=== PATIENT | male | born 1960 | race Caucasian/White ===

== ENCOUNTER → 2020-10-28 | Day surgery (SDC) | payer BC ==
[~2020-10-28] MED LIST: Iopamidol 612 MG/ML 50 ML SDV IVPUSH ONE; Iopamidol 755 Mg/ML 100 ML Bottle IVPUSH ONE; Lactated Ringers 1,000 ML IV SCH; Lidocaine 1% 4 ML ONE; Lidocaine 1%/Sod Bicarbonate in NS 8.4% 1 ML Syringe IDERM PRN; Propofol 200 MG/20 ML SDV ONE; Sodium Chloride 0.9% 10 ML Syringe FLUSH PRN
--- NOTE | 2020-10-28 09:50 | PCM.PREANE ---
Preanesthetic Assessment - Procedure Proposed Procedure: Colonoscopy - Anesthesia/Transfusion/Family Hx Anesthesia History: Prior Anesthesia Without Reaction Family History of Anesthesia Reaction: No Transfusion History: No Prior Transfusion(s) - Review of Systems General: No Symptoms Pulmonary: No Symptoms Cardiovascular: No Symptoms Gastrointestinal: No Symptoms Neurological: No Symptoms Other: Reports: None - Physical Assessment NPO Status Date: 10/27/20 NPO Status Time: 00:00 Height: 1.83 m Weight: 101 kg ASA Class: 2 Mental Status: Alert & Oriented x3 Airway Class: Mallampati = 1 Dentition: Reports: Dennison(s) Thyro-Mental Finger Breadths: 3 Mouth Opening Finger Breadths: 3 ROM/Head Extension: Full Lungs: Clear to Auscultation, Normal Respiratory Effort Cardiovascular: Regular Rate, Regular Rhythm - Allergies Allergies/Adverse Reactions: Allergies Allergy/AdvReac Type Severity Reaction Status Date / Time No Known Allergies Allergy Verified 10/27/20 14:28 - Blood Blood Available: No Product(s) Available: None - Anesthesia Plan Pre-Op Medication Ordered: None - Acknowledgements Anesthesia Type Planned: MAC Pt an Appropriate Candidate for the Planned Anesthesia: Yes Alternatives and Risks of Anesthesia Discussed w Pt/Guardian: Yes Pt/Guardian Understands and Agrees with Anesthesia Plan: Yes PreAnesthesia Questionnaire HEENT History: Reports: Impaired Vision, Other (See Below) Other HEENT History: wears glasses Cardiovascular History: Reports: Other (See Below) Other Cardiovascular History: AV block Respiratory History: Reports: None Gastrointestinal History: Reports: Chronic Constipation, Other (See Below) Other Gastrointestinal History: abdominal pain, blood in stool Genitourinary History: Reports: None 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 Musculoskeletal History: Reports: Osteoarthritis Neurological History: Reports: None Psychiatric History: Reports: None Endocrine/Metabolic History: Reports: Vitamin D Deficiency Hematologic History: Reports: None Immunologic History: Reports: None Oncologic (Cancer) History: Reports: None Dermatologic History: Reports: Other (See Below) Other Dermatologic History: fatty tumor removal - Infectious Disease History Infectious Disease History: Reports: None - Past Surgical History Head Surgeries/Procedures: Reports: None Cardiovascular Surgical History: Reports: None Respiratory Surgical History: Reports: None GI Surgical History: Reports: None Female Surgical History: Reports: None Male Surgical History: Reports: None Endocrine Surgical History: Reports: None Neurological Surgical History: Reports: None Musculoskeletal Surgical History: Reports: None Oncologic Surgical History: Reports: None Dermatological Surgical History: Reports: None - SUBSTANCE USE Tobacco Use Status *Q: Never Tobacco User Tobacco Use Within Last Twelve Months: No Second Hand Smoke Exposure: No Days Per Week of Alcohol Use: 1 Number of Drinks Per Day: 1 Total Drinks Per Week: 1 Recreational Drug Use History: No - HOME MEDS Home Medications: Home Meds . [No Known Home Meds] 10/27/20 [History] - CURRENT (IN HOUSE) MEDS Current Meds: Current Medications Lactated Ringer's (Ringers, Lactated) 1,000 mls @ 125 mls/hr IV ASDIRECTED RICK Stop: 10/28/20 23:00 Lidocaine/Sodium Bicarbonate (Buffered Lidocaine 1% In Ns 8.4%) 0.25 ml IDERM ONETIME PRN PRN Reason: Prior to IV Start Stop: 10/28/20 18:00 Sodium Chloride (Saline Flush) 10 ml FLUSH ASDIRECTED PRN PRN Reason: Keep Vein Open Stop: 10/28/20 18:00
--- NOTE | 2020-10-28 11:16 | PCM48HPAN ---
Post Anesthesia Note - EVALUATION WITHIN 48HRS OF ANESTHETIC Vital Signs in Normal Range: Yes Patient Participated in Evaluation: Yes Respiratory Function Stable: Yes Airway Patent: Yes Cardiovascular Function Stable: Yes Hydration Status Stable: Yes Pain Control Satisfactory: Yes Nausea and Vomiting Control Satisfactory: Yes Mental Status Recovered: Yes Vital Signs: Last Vital Signs Temp 36.0 C L 10/28/20 09:45 Pulse 68 10/28/20 09:45 Resp 16 10/28/20 09:45 BP 133/94 H 10/28/20 09:45 Pulse Ox 96 10/28/20 09:45
--- NOTE | 2020-10-28 11:58 | PCM.PRNOTE ---
- Free Text/Narrative Note: Date: 10/28/2020 Procedure: screening colonoscopy History: no prior screening, sister diagnosed with colon cancer Endoscopist: Jose Handley MD Findings: Large, > 2cm friable fungating polypoid lesion within the sigmoid colon at about 30 cm from the anal verge. 1.5 cm sessile polyp near hepatic flexure, with a nearby subcentimeter polyp in the ascending colon. The two larger lesions were marked with submucosal tattoo ink at their distal aspect. Detailed Report: The patient was taken to the endoscopy suite and placed in left lateral decubitus position. Monitored anesthesia care was initiated, and the anus was inspected. No gross abnormalities were noted. On digital rectal exam, no lesions were palpated, and the prostate felt normal. The colonoscope was then inserted and advanced towards the cecum. On entry, a large polypoid lesion was noted in the sigmoid colon. The scope was advanced with ease to the cecum, and the appendiceal orifice was visualized. Prep was very good. The terminal ileum was intubated, and mucosa appeared grossly normal. The colonoscope was then slowly withdrawn and mucosal surfaces were carefully inspected. Within the ascending colon, a subcentimeter benign-appearing polyp was noted. This was very difficult to biopsy with forceps given that it was on the far side of a mucosal ridge. After multiple unsuccessful attempts of biopsy, this area was thoroughly fulgurated. This lesion was within and only a few centimeters from a larger 1.5 cm sessile polyp near the hepatic flexure. Most of this lesion was removed using hot snare polypectomy technique. Additional pieces of polypoid tissue were removed using the snare, and the base of the tissue was fulgurated. I was not satisfied that the polyp was removed in its entirety, and tattooing was injected submucosally just distal to this lesion. The remainder of the colon appeared normal except for scattered diverticular disease, which was more prevalent in the sigmoid colon. The lesion that was noted on entry was again encountered within the sigmoid colon at about 30 cm from the anal verge. This had a gross appearance worrisome for dysplasia or malignancy. The hot snare was used to remove a substantial national sales representative piece of the lesion, and this was successfully retrieved. The tissue was noted to be friable. This lesion was too large and broad-based to permit safe complete endoscopic excision. Tattooing was injected submucosally just distal to the lesion. No abnormalities were noted within the rectum, on retroflexion no significant hemorrhoidal disease was appreciated. Air was suctioned from the colon prior to withdrawal of the scope. The patient tolerated the procedure well.
--- NOTE | 2020-10-28 12:45 | CT ---
CT chest Technique: Multiple axial sections were obtained through the chest. Intravenous contrast was utilized. Reconstructed coronal and sagittal images were obtained. Comparison: No prior chest imaging is available. Findings: Heart and mediastinum: Aorta shows no aneurysm. No mediastinal or hilar adenopathy is seen. No pericardial thickening is noted. Very minimal coronary artery calcification is seen. Several lymph nodes are seen within the axillary regions which show fatty center and appear within normal limits. Lungs: Lungs appear clear. No pulmonary nodules are appreciated. Several small parenchymal air cysts are seen within the left lung. Osseous: Slight degenerative change is seen within the spine. No acute findings of osseous metastatic disease are seen. Impression: 1. Findings as noted above. 2. Nothing seen to indicate metastatic disease within the chest. Diagnostic code #2 CT abdomen and pelvis Technique: Multiple axial sections were obtained from above the dome of the diaphragm inferiorly through the pubic symphysis. Delayed images were also obtained through these areas. Reconstructed coronal and sagittal images were obtained. Comparison: No prior abdominal or pelvic imaging is available. Findings: Liver and spleen: Liver and spleen shows no focal parenchymal abnormality. Gallbladder: No calcified gallstones are seen. Adrenal glands: No nodule is seen. Kidneys: Kidneys show symmetric contrast enhancement. Very minimal low density lesion noted within the right kidney measuring about 3 mm. This is nonspecific in etiology but most likely due to a small cyst. Small cyst is likely present within the left kidney measuring about 3-4 mm. Delayed images shows contrast within the ureters and within the bladder. Aorta and retroperitoneum. Atherosclerotic calcification is noted within the aorta and iliac vessels. No aneurysm is seen. No retroperitoneal adenopathy is seen. Pelvis: No pelvic mass or adenopathy is seen. Partially visualized low density lesion noted anterior to the lower hip which is incompletely included on this exam measuring about 2.6 cm. This most likely represents an old muscle tear. Bowel: Scattered diverticuli are seen. There is a soft tissue mass being seen within the sigmoid colon measuring approximately 2.4 cm. There is slight increased density seen within the adjacent mesentery around this abnormality. Bone window settings were reviewed. Scattered degenerative change is seen within the lumbar spine. No acute osseous finding is seen. Impression: 1. 2.4 cm mass within the sigmoid colon with minimal amount of adjacent mesenteric density. This finding is suspicious for colon cancer. Please correlate. 2. Other findings believed to be incidental as noted above. 3. Nothing is otherwise seen to indicate metastatic disease. Diagnostic code #9
== END | disposition home or self-care (01) ==
LOC: JD.SDS 09:24
PROVIDERS: ATTEND Surgery
DX: D12.5 Benign neoplasm of sigmoid colon (principal); D12.3 Benign neoplasm of transverse colon; E55.9 Vitamin D deficiency, unspecified; K59.00 Constipation, unspecified
CPT/HCPCS: 00811; 36415; 71260; 71260-26; 74177; 74177-26; 80053; 85007; 85027; 88305; J2001; J2704; J7120; Q9967

== ENCOUNTER 2020-11-05 11:00 | Inpatient (IN) | payer BC ==
[2020-11-23] MEDS ORDERED: Sodium Chloride 0.9% 10 ML Syringe FLUSH PRN (07:00)
[2020-11-23] MEDS ORDERED: Lactated Ringers 1,000 ML IV SCH (07:00)
[2020-11-23] MEDS ORDERED: Lidocaine 2% with EPINEPHrine 1:200,000 20 ML SDV ONE (07:48)
[2020-11-23] MEDS ORDERED: Propofol 200 MG/20 ML SDV ONE ×3 (08:54→15:27)
[2020-11-23] MEDS ORDERED: fentaNYL 250 MCG/5 ML SDV ONE (08:55)
[2020-11-23] MEDS ORDERED: Midazolam 1 MG/ML 2 ML SDV ONE ×2 (08:55→10:54)
[2020-11-23] MEDS ORDERED: Lidocaine 1% 4 ML ONE (08:57)
[2020-11-23] MEDS ORDERED: Rocuronium 50 MG/5 ML Vial ONE (08:59)
[2020-11-23] MEDS ORDERED: Dexamethasone 4 MG/ML 5 ML MDV ONE ×2 (09:01→15:56)
[2020-11-23] MEDS ORDERED: Ondansetron 4 MG/2 ML SDV ONE (09:01)
[2020-11-23] MEDS: Lidocaine 1%/Sod Bicarbonate in NS 8.4% 1 ML Syringe IDERM PRN ×2 (09:25→09:35)
[2020-11-23] MEDS ORDERED: cefOXitin 2 GM in Premix Bag 1 BAG IV ONE (09:30)
[2020-11-23] MEDS ORDERED: FLU VACC QS2020-21(6MOS UP)/PF 60 MCG/0.5 ML SYRINGE IM ONE (10:00)
--- NOTE | 2020-11-23 10:16 | PCM.PREANE ---
Preanesthetic Assessment - Procedure Proposed Procedure: diagnositc laparascopy with partial colectomy open - Anesthesia/Transfusion/Family Hx Anesthesia History: Prior Anesthesia Without Reaction Family History of Anesthesia Reaction: No Transfusion History: No Prior Transfusion(s) Intubation History: Unknown - Review of Systems General: No Symptoms Pulmonary: No Symptoms Cardiovascular: No Symptoms Gastrointestinal: No Symptoms Neurological: No Symptoms Other: Reports: None - Physical Assessment NPO Status Date: 11/22/20 Vital Signs: Last Vital Signs Temp 36.6 C 11/23/20 09:00 Pulse 73 11/23/20 09:00 Resp 17 11/23/20 09:00 BP 150/95 H 11/23/20 09:00 Pulse Ox 96 11/23/20 09:00 Height: 1.83 m Weight: 94.6 kg ASA Class: 3 Mental Status: Alert & Oriented x3 Airway Class: Mallampati = 2 () Dentition: Reports: Normal Dentition Thyro-Mental Finger Breadths: 3 Mouth Opening Finger Breadths: 4 - Allergies Allergies/Adverse Reactions: Allergies Allergy/AdvReac Type Severity Reaction Status Date / Time No Known Allergies Allergy Verified 11/23/20 09:56 - Blood Blood Available: No - Anesthesia Plan Pre-Op Medication Ordered: None, Other (scopalamine patch ) - Acknowledgements Anesthesia Type Planned: General Anesthesia Pt an Appropriate Candidate for the Planned Anesthesia: Yes Alternatives and Risks of Anesthesia Discussed w Pt/Guardian: Yes Pt/Guardian Understands and Agrees with Anesthesia Plan: Yes PreAnesthesia Questionnaire HEENT History: Reports: Impaired Vision, Other (See Below) Other HEENT History: wears glasses Cardiovascular History: Reports: Other (See Below) Other Cardiovascular History: AV block Respiratory History: Reports: None Gastrointestinal History: Reports: Chronic Constipation, Other (See Below) Other Gastrointestinal History: abdominal pain, blood in stool Genitourinary History: Reports: None 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 Musculoskeletal History: Reports: Osteoarthritis Neurological History: Reports: None Psychiatric History: Reports: None Endocrine/Metabolic History: Reports: Vitamin D Deficiency Hematologic History: Reports: None Immunologic History: Reports: None Oncologic (Cancer) History: Reports: None Dermatologic History: Reports: Other (See Below) Other Dermatologic History: fatty tumor removal - Infectious Disease History Infectious Disease History: Reports: None - Past Surgical History Head Surgeries/Procedures: Reports: None Cardiovascular Surgical History: Reports: None Respiratory Surgical History: Reports: None GI Surgical History: Reports: None Female Surgical History: Reports: None Male Surgical History: Reports: None Endocrine Surgical History: Reports: None Neurological Surgical History: Reports: None Musculoskeletal Surgical History: Reports: None Oncologic Surgical History: Reports: None Dermatological Surgical History: Reports: None - SUBSTANCE USE Tobacco Use Status *Q: Never Tobacco User Second Hand Smoke Exposure: No Recreational Drug Use History: No - HOME MEDS Home Medications: Home Meds . [No Known Home Meds] 10/27/20 [History] - CURRENT (IN HOUSE) MEDS Current Meds: Current Medications Lactated Ringer's (Ringers, Lactated) 1,000 mls @ 125 mls/hr IV ASDIRECTED RICK Stop: 11/23/20 23:00 Last Admin: 11/23/20 09:25 Dose: 125 mls/hr Documented by: Lidocaine/Sodium Bicarbonate (Buffered Lidocaine 1% In Ns 8.4%) 0.25 ml IDERM ONETIME PRN PRN Reason: Prior to IV Start Stop: 11/23/20 18:00 Last Admin: 11/23/20 09:35 Dose: 0.25 ml Documented by: Sodium Chloride (Saline Flush) 10 ml FLUSH ASDIRECTED PRN PRN Reason: Keep Vein Open Stop: 11/23/20 18:00 Last Admin: 11/23/20 09:35 Dose: 10 ml Documented by: Discontinued Medications Dexamethasone (Dexamethasone) Confirm Administered Dose 20 mg .ROUTE .STK-MED ONE Stop: 11/23/20 09:02 Fentanyl (Sublimaze) Confirm Administered Dose 250 mcg .ROUTE .STK-MED ONE Stop: 11/23/20 08:56 Lidocaine HCl (Xylocaine-Mpf 1%) Confirm Administered Dose 4 mls @ as directed .ROUTE .STK-MED ONE Stop: 11/23/20 08:58 Cefoxitin Sodium 2 gm/ Premix 50 mls @ 100 mls/hr IV ONETIME ONE Stop: 11/23/20 09:59 Last Admin: 11/23/20 09:57 Dose: 100 mls/hr Documented by: Influenza Virus Vaccine (Fluzone Quad [id number] Syringe) 60 mcg IM .ONCE ONE Stop: 11/23/20 10:01 Lidocaine/Epinephrine (Xylocaine-Mpf 2%-Epi 1:200,000) Confirm Administered Dose 20 ml .ROUTE .STK-MED ONE Stop: 11/23/20 07:49 Midazolam HCl (Versed 1 Mg/Ml) Confirm Administered Dose 2 mg .ROUTE .STK-MED ONE Stop: 11/23/20 08:56 Ondansetron HCl (Zofran) Confirm Administered Dose 4 mg .ROUTE .STK-MED ONE Stop: 11/23/20 09:02 Propofol (Diprivan 20 Ml) Confirm Administered Dose 400 mg .ROUTE .STK-MED ONE Stop: 11/23/20 08:55 Propofol (Diprivan 20 Ml) Confirm Administered Dose 200 mg .ROUTE .STK-MED ONE Stop: 11/23/20 08:57 Rocuronium [place] (Zemuron) Confirm Administered Dose 50 mg .ROUTE .STK-MED ONE Stop: 11/23/20 09:00
[2020-11-23] MEDS ORDERED: Ondansetron 4 MG/2 ML SDV IVPUSH PRN (10:23)
[2020-11-23] MEDS ORDERED: diphenhydrAMINE 50 MG/ML SDV IVPUSH PRN (10:23)
[2020-11-23] MEDS ORDERED: Lidocaine 1% with EPINEPHrine 1:100,000 20 ML MDV ONE (10:29)
[2020-11-23] MEDS ORDERED: Scopolamine 1.5 MG Transdermal Patch TRDERM ONE (11:00)
--- NOTE | 2020-11-23 14:43 | PCM.SN.2 ---
- Free Text/Narrative Note: 11/23/[address] Handley for pain control. Time Out: 1116 Start: 1125 Test Dose: 1129 Stop: 1130 Midazolam 2 mg IVP given at 1120. Full monitors applied. See nursing notes fro vital signs. Tanmay Oswald agrees to proceed with epidural placement. Risks and benefits of the procedure reviewed and questions answered. Sterile Prep and Drape applied, betadine x 3, with time allowed to dry, gauze to wipe betadine prior to skin puncture, 17 gauge Tuohy needle advanced to VIOLA at 5 cm, catheter inserted with ease, needle removed, catheter placed at 12 cm at the skin, negaive heme aspiration, no fluid noted in needle or catheter, denied paresthesia, test dose administered 1.5 % lidocaine with epinephrine 1:200,000 3 ml, negative test dose, catheter secured and covered with a transparent dressing and tape to secure to the shoulder. Tanmay was repositioned supine with HOB elevated. Tanmay tolerated the procedure well with no complications noted. Lidocaine 2% with epinephrine 1:200,000 administered to a volume of 5 ml. Epidural setting up appropriately. Warmth and tingling noted to both feet. Sarah Jensen CRNA
[2020-11-23] MEDS ORDERED: Morphine PF 10 MG/10 ML SDV ONE (15:16)
[2020-11-23] MEDS ORDERED: ePHEDrine 50 MG/ML SDV IVPUSH PRN (16:19)
[2020-11-23] MEDS ORDERED: fentaNYL 100 MCG/2 ML SDV IVPUSH PRN (16:20)
[2020-11-23] MEDS ORDERED: Lactated Ringers 1,000 ML ONE ×2 (16:42)
[2020-11-23] MEDS ORDERED: Morphine 2 MG/ML SYRINGE IVPUSH PRN (16:44)
[2020-11-23] MEDS ORDERED: Acetaminophen 325 MG Tab PO SCH (16:45)
[2020-11-23] MEDS ORDERED: Heparin Sodium 5,000 Units/ML Vial SUBCUT SCH (16:45)
--- NOTE | 2020-11-23 16:55 | PCM.POSTAN ---
POST ANESTHESIA ASSESSMENT - MENTAL STATUS Mental Status: Other (Drowsy) - VITAL SIGNS Vital Signs: Last Vital Signs Temp 36.6 C 11/23/20 09:00 Pulse 73 11/23/20 09:00 Resp 17 11/23/20 09:00 BP 150/95 H 11/23/20 09:00 Pulse Ox 96 11/23/20 09:00 - RESPIRATORY Respiratory Status: Respiratory Rate WNL, Airway Patent, O2 Saturation Stable, Supplemental Oxygen - CARDIOVASCULAR CV Status: Blood Pressure Stable, Slow Pulse Rate - GASTROINTESTINAL GI Status: No Symptoms - PAIN Pain Score: 0 - POST OP HYDRATION Hydration Status: Adequate & Stable
--- NOTE | 2020-11-23 17:03 | PCM.PRNOTE ---
- Free Text/Narrative Note: Date: 11/23/2020 Operation: diagnostic laparoscopy, laparotomy with sigmoid colectomy, segmental proximal transverse colectomy Indication: endoscopically unresectable polyps Surgeon: Jose Handley MD Findings: tattoo sites noted to indicate site of lesions. 5 cm segment of proximal transverse colon resected with end to end handsewn anastomosis. 25 cm segment of sigmoid colon resected with stapled end-to-end colorectal anastomosis. ARABELLA drain left in pelvis. I/O: 2.8L/0.55L EBL: 200 cc Antibiotic: cefoxitin dosed before and during case Detailed Report: The patient was taken to the operating room and placed in supine position. Timeout was performed, and general endotracheal anesthesia initiated. A Booker catheter was placed. The abdominal hair was clipped, and the patient was then positioned in low lithotomy. The abdomen was prepped and draped in usual sterile fashion. A Veress needle was placed at the left upper quadrant to establish pneumoperitoneum. A bladed 5 mm trocar was placed just superior to the umbilicus, and a 5 mm 30 degree laparoscope was inserted in the abdomen. On inspection, there was tattoo ink visible on the serosa of the proximal transverse colon near the hepatic flexure. Additional tattoo marking was seen at the mid sigmoid. A midline laparotomy was then made, and attention was turned to the sigmoid colon. The Bookwalter was placed to aid with proper retraction and exposure. Lateral attachments of the descending and sigmoid colon were divided, and the colon was reflected medially off of the retroperitoneum. A contour blue load stapler was used to divide the colon approximately 5 cm proximal and distal to the marked site. The colonic mesentery was then divided using the LigaSure. The specimen was passed off, and the 2 stapled ends of bowel came together without tension. Marking stitches were placed at the 2 staple lines, and attention was then turned to the proximal lesion of the transverse colon. Omentum was taken off the proximal portion of the transverse colon, and there appeared to be enough mobility to allow for short resection without extensive dissection. The contour stapler was again used to remove the marked section of colon, a segment measuring approximately 5 cm in length. Specimen was sent off separately. Colotomies were made that permitted passage of the index finger, and the colon was sewn together with interrupted 3-0 Vicryl suture. This anastomosis appeared to have good blood supply and came together without tension. Next, attention was turned to the distal anastomosis. The patient was properly positioned with the ends of the sigmoid colon and superior portion of the rectum exposed. The staple line of the sigmoid colon was removed, and a pursestring Monocryl suture was placed in order to secure the anvil for the circular stapler. The railways assistant passed anal dilators up to the distal staple line. The 25 mm circular stapler was then passed up to the distal staple line, and the anvil and stapler were coupled. The stapler was closed without tension. The stapler was fired by the railways assistant, and the stapler was removed without any difficulty. A leak test was performed with a sigmoidoscope, which was negative. On the back table, the circular stapler was opened and 2 intact circular rings of tissue were retrieved. The abdomen was thoroughly irrigated and suctioned. A 10 Irish ARABELLA drain was placed in the pelvis and brought out to the right lower quadrant. This was secured at the level of the skin with a nylon suture. The abdomen was closed at the level of fascia with running 0 PDS suture. The skin and subcutaneous tissue was again irrigated, and skin was closed with fabienne. The patient tolerated the procedure well, was extubated in the operating room and transferred to the ICU for postoperative care. .
[2020-11-23] MEDS: diphenhydrAMINE 50 MG/ML SDV IVPUSH PRN (20:35)
[2020-11-23] MEDS: Acetaminophen 325 MG Tab PO SCH (20:39)
[2020-11-23] MEDS: Heparin Sodium 5,000 Units/ML Vial SUBCUT SCH (20:39)
[2020-11-23] MEDS: Lactated Ringers 1,000 ML IV SCH (21:22)
[2020-11-24] MEDS: diphenhydrAMINE 50 MG/ML SDV IVPUSH PRN ×2 (02:36→08:56)
[2020-11-24] MEDS: Acetaminophen 325 MG Tab PO SCH ×3 (03:39→21:24)
[2020-11-24] MEDS: Heparin Sodium 5,000 Units/ML Vial SUBCUT SCH ×3 (03:41→21:22)
[2020-11-24] MEDS: Lactated Ringers 1,000 ML IV SCH ×4 (04:10→22:51)
--- NOTE | 2020-11-24 07:20 | PCM48HPAN ---
Post Anesthesia Note - EVALUATION WITHIN 48HRS OF ANESTHETIC Vital Signs in Normal Range: Yes Patient Participated in Evaluation: Yes Respiratory Function Stable: Yes Airway Patent: Yes Cardiovascular Function Stable: Yes Hydration Status Stable: Yes Pain Control Satisfactory: Yes (minimal pain- sit up soreness is all) Nausea and Vomiting Control Satisfactory: Yes Mental Status Recovered: Yes Vital Signs: Last Vital Signs Temp 99.6 F 11/24/20 03:29 Pulse 73 11/24/20 03:29 Resp 19 11/24/20 03:29 BP 105/66 11/24/20 03:29 Pulse Ox 96 11/24/20 03:29 - COMMENTS/OBSERVATIONS Free Text/Narrative:: doing well. Minimal pain- 1- Will assess later today and rebolus epidural with astromorph. Patient pleased with care. David
--- NOTE | 2020-11-24 08:18 | PCM.SN.2 ---
- Free Text/Narrative Note: Partial transverse colectomy and sigmoid colectomy for endoscopically unresectable polyps on 11/24/2020. POD 1 S: no acute events overnight. Pain well controlled. Tolerating sips. O: AF- VSS, UOP ~ 40 cc/hr Labs reviewed, unremarkable for POD 1 Awake and alert, no distress Breathing comfortably, nasal cannula in place RRR Abd appropriately tender. Dressing appears somewhat bloody. ARABELLA drain with small volume sanguinous output Aquino catheter in place with clear yellow urine No edema A: Doing well POD 1, no issues. P: -epidural in place for analgesia, morphine prn -IS, OOB, pulmonary toilet -advance to clear liquids -reassess urine output this afternoon, possible aquino catheter removal and trial of void -no antibiotics indicated -no plan to repeat labs unless clinically indicated -heparin 5000 u SC, SCDs for DVT ppx -await return of bowel function -anticipate at least 4 night stay in house
[2020-11-24] MEDS ORDERED: Morphine PF 10 MG/10 ML SDV ONE (13:33)
[2020-11-24] MEDS ORDERED: diphenhydrAMINE 50 MG/ML SDV IVPUSH PRN (13:54)
--- NOTE | 2020-11-24 13:54 | PCM.SN.2 ---
- Free Text/Narrative Note: 11/24/20 [id number] Epidural assessed. Patient was just up walking. Minimal pain. Bolus of Duramorph 5 mg via epidural for post op pain relief after bowel resection. Vitals stable. Patient pleased with care. Denies nausea. Nurse in room also. Pulse oximeter remains on. [email or web address]
[2020-11-25] MEDS: Acetaminophen 325 MG Tab PO SCH (04:53)
[2020-11-25] MEDS: Heparin Sodium 5,000 Units/ML Vial SUBCUT SCH ×3 (04:53→19:58)
[2020-11-25] MEDS: Ondansetron 4 MG/2 ML SDV IVPUSH PRN ×2 (04:54→14:16)
[2020-11-25] MEDS ORDERED: Sodium Chloride 0.45% 1,000 ML IV SCH (07:45)
--- NOTE | 2020-11-25 07:55 | PCM.SN.2 ---
- Free Text/Narrative Note: Epidural assessment. Epidural utilized for post op pain management. Post op day [address] Handley wishes to continue to manage pain with epidural at this time. Tanmay states he was up multiple times last evening. Pain is worse with movement. Denies pain at rest. Nausea episode this morning that was relieved with ondansetron. Currently does not feel nauseated. Epidural Duramorph administered 2 mg at 0810.
[2020-11-25] MEDS ORDERED: Morphine PF 10 MG/10 ML SDV ONE (08:05)
[2020-11-25] MEDS: Pantoprazole 40 MG Tab.CR PO SCH (08:06)
[2020-11-25] MEDS ORDERED: Pantoprazole 40 MG in Sodium Chloride 0.9% 100 ML IV SCH (09:00)
--- NOTE | 2020-11-25 09:19 | PCM.SN.2 ---
- Free Text/Narrative Note: Partial transverse colectomy and sigmoid colectomy for endoscopically unresectable polyps on 11/24/2020. POD 2 S: no acute events overnight. Pain well controlled. Tolerating clear liquids, voiding after aquino removal. Belching. No flatus. O: AF- VSS Awake and alert, no distress Breathing comfortably, now on room air RRR Abd appropriately tender. Incision clean, minimal serosanguinous drainage. ARABELLA drain with serosanguinous output. No edema A: Doing well POD 2 P: -epidural in place for analgesia, morphine prn. Plan for epidural removal tomorrow. -IS, OOB, pulmonary toilet -switch IV fluids to 1/2 NS @ 50 cc/hr -stick with clear liquids. Add oral PPI -heparin 5000 u SC, SCDs for DVT ppx -await return of bowel function -anticipate at least 4 night stay in house
[2020-11-25] MEDS ORDERED: Ondansetron 4 MG/2 ML SDV ONE (13:57)
[2020-11-25] MEDS ORDERED: Dexmedetomidine 200 MCG/2 ML SDV IT PRN (16:00)
[2020-11-25] MEDS ORDERED: Dexmedetomidine 200 MCG/2 ML SDV ONE (16:09)
[2020-11-25] MEDS ORDERED: Ondansetron 4 MG/2 ML SDV IVPUSH PRN (17:53)
[2020-11-26] MEDS: Heparin Sodium 5,000 Units/ML Vial SUBCUT SCH ×4 (04:16→20:16)
[2020-11-26] MEDS: Pantoprazole 40 MG Tab.CR PO SCH (08:13)
--- NOTE | 2020-11-26 08:19 | PCM.PRNOTE ---
- Free Text/Narrative Note: Partial transverse colectomy and sigmoid colectomy for endoscopically unresectable polyps on 11/23/2020. POD 3 S: no acute events overnight. Reports abdominal pain when shifting around in bed. Tolerating clear liquids, voiding after aquino removal. Belching. Reports flatus x1 last evening. Had an episode of chills when out of bed to bathroom yesterday evening. O: AF- VSS Awake and alert, no distress Breathing comfortably on room air, sitting in recliner RRR, palpable radial pulses Abd incision intact without significant drainage. ARABELLA drain with odorless serosanguinous output. Distended, tender, more on left side, no rigidity or rebound. Skin warm, dry, No edema A: Stable on POD 3- seems to have ileus with distention and discomfort. Discussed possible placement of NG tube for decompression today. P: -plan for epidural removal today. Dilaudid, tylenol prn pain -IS, OOB, pulmonary toilet -medlocked -stick with clear liquids. PPI. Possible NG tube placement for ileus. -heparin 5000 u SC, SCDs for DVT ppx -await return of bowel function -repeat labs in AM including CRP -anticipate at least 4 night stay in house
[2020-11-26] MEDS ORDERED: D5 1/2 NS w/ 20 mEq/L KCl 1,000 ML IV SCH (08:30)
[2020-11-26] MEDS: Acetaminophen 325 MG Tab PO PRN (11:20)
[2020-11-26] MEDS ORDERED: HYDROmorphone 0.5 MG/0.5 ML Syringe IVPUSH PRN (11:45)
[2020-11-26] MEDS ORDERED: Morphine PF 10 MG/10 ML SDV ONE (12:26)
[2020-11-26] MEDS ORDERED: Lactated Ringers 500 ML IV ONE ×2 (12:38→19:15)
--- NOTE | 2020-11-26 13:06 | PCM.SN.2 ---
- Free Text/Narrative Note: Assessment and re-evaluation of the patient with indwelling epidural catheter. Patient is on her postoperative day 3. Vital signs stable. Over last night the patient has experienced increase in pain, which was treated once with Morphine IV. Per discussion with Dr. Syed Handley, a decision was made to keep the epidural catheter and to continue with intermittent boluses for pain coverage. Duramorph epidural PRN orders were resumed. Lumbar epidural site dressing was found loose. In order to assess the patency of the epidural catheter a one-time test dose of 1.5% PF Lidocaine with 1:200k of epinephrine, total of 5 ml was given when the patient in bed in right decubitus position. The patient reported some numbness and tingling in lower extremities and subsequent relief of abdominal pain. Moderate decrease in BP was also noted. Epidural catheter dressing was removed and the catheter depth at the skin was noted to be 12 cm. The dressing changed in a sterile fashion, after skin cleaning with Chloraprep, allowing to dry and securing the catheter with 2x2 sterile gauze and 2 layers of Tegaderm adhesive dressing. A PRN IVF LR bolus was also ordered due to patient's transient hypotension. Patient is comfortable right now and prefers to stay in bed and to have some rest. . Plan is not to remove epidural catheter at this time. At 13:30 5 mg of Duramorph was given via the epidural catheter. We will reevaluate the patient within the next 24 hours.
[2020-11-26] MEDS: Morphine PF 10 MG/10 ML SDV EPIDUR PRN (13:29)
[2020-11-27] MEDS: D5 1/2 NS w/ 20 mEq/L KCl 1,000 ML IV SCH ×2 (01:49→13:33)
[2020-11-27] MEDS: Heparin Sodium 5,000 Units/ML Vial SUBCUT SCH ×3 (03:02→19:40)
--- NOTE | 2020-11-27 07:06 | PCM.CONS ---
H&P History of Present Illness - General Date of Service: 11/27/20 Admit Problem/Dx: Admission Diagnosis/Problem Admission Diagnosis/Problem Colon polyp Source of Information: Patient History Limitations: Reports: No Limitations - History of Present Illness Initial Comments - Free Text/Narative: Internal medicine consult requested by surgery for new onset atrial fibrillatio n. The patient is a 60-year-old gentleman who is currently in postop day 4 of partial colectomy. This was done secondary to polyps and inability to defecate. The patient says that he has never had history of atrial fibrillation. The patient had converted to normal sinus rhythm at approximately 9 PM last night. The patient is currently anticoagulated with heparin at 5000 units subcutaneous every 8 hours. The patient has an NG tube in place. The patient himself says that he feels pretty good today. He has been previously ambulating. He has no other complaints at this time. Onset of Symptoms: Reports: Sudden Duration of Symptoms: Reports: Hour(s):, Resolved Prior to Arrival Improves with: Reports: None Worsens with: Reports: None Context: Reports: Trauma (Partial colectomy) Associated Symptoms: Reports: No Other Symptoms Abdominal Pain Pain Score (Numeric/FACES): 3 - Related Data Allergies/Adverse Reactions: Allergies Allergy/AdvReac Type Severity Reaction Status Date / Time No Known Allergies Allergy Verified 11/23/20 22:03 Home Medications: Home Meds Cholecalciferol (Vitamin D3) [Vitamin D] 1 tab PO DAILY 11/23/20 [History] L.acidoph,Paracasei, B.lactis [Probiotic] 1 tab PO DAILY 11/23/20 [History] Multivitamin 1 tab PO DAILY 11/23/20 [History] Past Medical History HEENT History: Reports: Impaired Vision, Other (See Below) Other HEENT History: wears glasses Cardiovascular History: Reports: None Other Cardiovascular History: AV block Respiratory History: Reports: None Gastrointestinal History: Reports: Chronic Constipation, Other (See Below) Other Gastrointestinal History: abdominal pain, blood in stool Genitourinary History: Reports: None CARD STRIPPER History: Reports: None Musculoskeletal History: Reports: None Neurological History: Reports: None Psychiatric History: Reports: None Endocrine/Metabolic History: Reports: None Hematologic History: Reports: None Immunologic History: Reports: None Oncologic (Cancer) History: Reports: None Dermatologic History: Reports: Other (See Below) Other Dermatologic History: fatty tumor removal - Infectious Disease History Infectious Disease History: Reports: None - Past Surgical History Head Surgeries/Procedures: Reports: None Cardiovascular Surgical History: Reports: None Respiratory Surgical History: Reports: None GI Surgical History: Reports: None, Colonoscopy Other GI Surgeries/Procedures: 10/2020 Male Surgical History: Reports: None Endocrine Surgical History: Reports: None Neurological Surgical History: Reports: None Musculoskeletal Surgical History: Reports: None Oncologic Surgical History: Reports: None Dermatological Surgical History: Reports: None Social & Family History - Tobacco Use Tobacco Use Status *Q: Never Tobacco User Second Hand Smoke Exposure: No - Caffeine Use Caffeine Use: Reports: Tea - Recreational Drug Use Recreational Drug Use: No H&P Review of Systems - Review of Systems: Review Of Systems: See Below General: Reports: Weakness HEENT: Reports: No Symptoms Pulmonary: Reports: No Symptoms Cardiovascular: Reports: No Symptoms Gastrointestinal: Reports: Abdominal Pain. Denies: Flatus Genitourinary: Reports: No Symptoms Musculoskeletal: Reports: No Symptoms Skin: Reports: No Symptoms Psychiatric: Reports: No Symptoms Neurological: Reports: No Symptoms Hematologic/Lymphatic: Reports: No Symptoms Immunologic: Reports: No Symptoms Exam - Exam Exam: See Below - Vital Signs Vital Signs: Last Vital Signs Temp 36.6 C 11/27/20 03:09 Pulse 70 11/27/20 03:09 Resp 14 11/27/20 05:00 BP 112/73 11/27/20 03:09 Pulse Ox 97 11/27/20 05:00 Weight: 98.702 kg - Exam Quality Assessment: DVT Prophylaxis, Other (G-tube in place). No: Supplemental Oxygen General: Alert, Oriented, Cooperative HEENT: Conjunctiva Clear, EACs Clear, EOMI, Mucosa Moist & [place], Pupils Equal, PERRLA Neck: Supple, Trachea Midline Lungs: Clear to Auscultation, Normal Respiratory Effort Cardiovascular: Regular Rate, Regular Rhythm GI/Abdominal Exam: Soft, No Distention. No: Normal Bowel Sounds (Hypoactive), Guarding, Rigid, Rebound (Male) Exam: Deferred Rectal (Males) Exam: Deferred Back Exam: Normal Inspection, Full Range of Motion Extremities: Normal Inspection, No Pedal Edema Skin: Warm, Intact, Moist Neurological: Cranial Nerves Intact, Normal Gait, Normal Speech Neuro Extensive - Mental Status: Alert, Oriented x3, Memory Intact Neuro Extensive - Motor, Sensory, Reflexes: CN II-XII Intact Psychiatric: Alert, Normal Affect, Normal Mood - Patient Data Lab Results Last 24 hrs: Laboratory Results - last 24 hr 11/26/20 11/27/20 11/27/20 Range/Units 16:15 04:19 04:19 WBC 11.03 H 10.32 H (4.23-9.07) K/mm3 RBC 4.12 L 3.84 L (4.63-6.08) M/mm3 Hgb 12.2 L 11.3 L (13.7-17.5) gm/dl Hct 36.7 L 34.8 L (40.1-51.0) % MCV 89.1 90.6 (79.0-92.2) fl MCH 29.6 29.4 (25.7-32.2) pg MCHC 33.2 32.5 (32.2-35.5) g/dl RDW Std Deviation 41.7 42.9 (35.1-43.9) fL Plt Count 220 223 (163-337) K/mm3 MPV 8.9 L 9.6 (9.4-12.3) fl Neut % (Auto) 77.6 H 72.6 H (34.0-67.9) % Lymph % (Auto) 11.6 L 9.9 L (21.8-53.1) % Loup % (Auto) 8.2 10.1 (5.3-12.2) % Eos % (Auto) 2.2 7.1 H (0.8-7.0) Baso % (Auto) 0.2 0.2 (0.1-1.2) % Neut # (Auto) 8.57 H 7.50 H (1.78-5.38) K/mm3 Lymph # (Auto) 1.28 L 1.02 L (1.32-3.57) K/mm3 Loup # (Auto) 0.90 H 1.04 H (0.30-0.82) K/mm3 Eos # (Auto) 0.24 0.73 H (0.04-0.54) K/mm3 Baso # (Auto) 0.02 0.02 (0.01-0.08) K/mm3 Manual Slide Review Normal smear Normal smear Sodium (136-145) mEq/L Potassium (3.5-5.1) mEq/L Chloride (98-107) mEq/L Carbon Dioxide (21-32) mEq/L Anion Gap (5-15) BUN (7-18) mg/dL Creatinine (0.7-1.3) mg/dL Est Cr Clr Drug Dosing mL/min Estimated GFR (MDRD) (>60) mL/min BUN/Creatinine Ratio (14-18) Glucose (74-106) mg/dL Calcium (8.5-10.1) mg/dL Phosphorus 3.4 (2.6-4.7) mg/dL Magnesium 1.9 (1.8-2.4) mg/dl C-Reactive Protein 35.6 H* (<1.0) mg/dL 11/27/20 Range/Units 04:19 WBC (4.23-9.07) K/mm3 RBC (4.63-6.08) M/mm3 Hgb (13.7-17.5) gm/dl Hct (40.1-51.0) % MCV (79.0-92.2) fl MCH (25.7-32.2) pg MCHC (32.2-35.5) g/dl RDW Std Deviation (35.1-43.9) fL Plt Count (163-337) K/mm3 MPV (9.4-12.3) fl Neut % (Auto) (34.0-67.9) % Lymph % (Auto) (21.8-53.1) % Loup % (Auto) (5.3-12.2) % Eos % (Auto) (0.8-7.0) Baso % (Auto) (0.1-1.2) % Neut # (Auto) (1.78-5.38) K/mm3 Lymph # (Auto) (1.32-3.57) K/mm3 Loup # (Auto) (0.30-0.82) K/mm3 Eos # (Auto) (0.04-0.54) K/mm3 Baso # (Auto) (0.01-0.08) K/mm3 Manual Slide Review Sodium 140 (136-145) mEq/L Potassium 3.8 (3.5-5.1) mEq/L Chloride 105 (98-107) mEq/L Carbon Dioxide 29 (21-32) mEq/L Anion Gap 9.8 (5-15) BUN 15 (7-18) mg/dL Creatinine 1.3 (0.7-1.3) mg/dL Est Cr Clr Drug Dosing 66.32 mL/min Estimated GFR (MDRD) 56 (>60) mL/min BUN/Creatinine Ratio 11.5 L (14-18) Glucose 127 H (74-106) mg/dL Calcium 8.1 L (8.5-10.1) mg/dL Phosphorus (2.6-4.7) mg/dL Magnesium (1.8-2.4) mg/dl C-Reactive Protein (<1.0) mg/dL Result Diagrams: 11/27/20 04:19 11/27/20 04:19 Sepsis Event Note - Evaluation Sepsis Screening Result: No Definite Risk - Focused Exam Vital Signs: Vital Signs Temp Pulse Resp BP BP Pulse Ox 11/27/20 05:00 14 97 11/27/20 04:30 17 95 11/27/20 04:00 13 92 L 11/27/20 03:30 16 93 L 11/27/20 03:09 36.6 C 70 18 112/73 94 L 11/27/20 03:01 18 112/73 96 11/27/20 03:00 15 95 11/27/20 02:30 17 95 11/27/20 02:00 17 96 11/27/20 01:30 14 96 11/27/20 01:00 15 96 11/27/20 00:30 21 H 96 11/27/20 00:00 36.6 C 74 14 101/65 94 L 11/26/20 23:40 17 101/65 95 11/26/20 23:39 19 94 L 11/26/20 23:30 15 95 11/26/20 23:00 15 94 L 11/26/20 22:30 18 93 L 11/26/20 22:00 18 94 L 11/26/20 21:51 19 108/69 91 L 11/26/20 21:50 19 93 L 11/26/20 21:30 21 H 95 11/26/20 21:01 18 92 L 11/26/20 21:00 20 105/68 91 L 11/26/20 20:49 20 110/74 92 L 11/26/20 20:48 15 91 L 11/26/20 20:30 20 94 L 11/26/20 20:01 20 93 L 11/26/20 20:00 19 102/70 94 L 11/26/20 19:59 17 95 11/26/20 19:50 96/74 92 L 11/26/20 19:49 17 92 L 11/26/20 19:48 37.0 C 100 20 96/74 92 L 11/26/20 19:45 22 H 101/72 89 L 11/26/20 19:44 24 H 91 L 11/26/20 19:41 24 H 84/55 L 92 L 11/26/20 19:40 22 H 93 L 11/26/20 19:39 20 92/46 L 92 L 11/26/20 19:38 21 H 93 L 11/26/20 19:31 22 H 94 L 11/26/20 19:30 23 H 105/76 92 L 11/26/20 19:29 19 91 L Consult PN Assessment/Plan POD#: 4 Procedures: Procedures ASSAY OF BLOOD/URIC ACID (09/28/20) ASSAY OF LACTIC ACID (09/28/20) ASSAY THYROID STIM HORMONE (09/28/20) BL SMEAR W/DIFF WBC COUNT (10/28/20) C-REACTIVE PROTEIN (09/28/20) COLONOSCOPY AND BIOPSY (10/28/20) COLONOSCOPY SUBMUCOUS NJX (10/28/20) COLONOSCOPY W/LESION REMOVAL (10/28/20) COMPLETE CBC AUTOMATED (10/28/20) COMPLETE CBC W/AUTO DIFF WBC (09/28/20) COMPREHEN METABOLIC PANEL (10/28/20) CT ABD & PELV W/CONTRAST (10/28/20) CT THORAX DX C+ (10/28/20) GLYCOSYLATED HEMOGLOBIN TEST (09/28/20) LIPID PANEL (09/28/20) OFFICE O/P EST MINIMAL PROB (11/20/20) ROUTINE VENIPUNCTURE (10/28/20) SARS-COV-2 COVID-19 AMP PRB (11/20/20) TISSUE EXAM BY PATHOLOGIST (10/28/20) UR ALBUMIN SEMIQUANTITATIVE (09/28/20) URINALYSIS AUTO W/O SCOPE (09/28/20) VITAMIN B-12 (09/28/20) VITAMIN D 25 HYDROXY (09/28/20) X-RAY EXAM ABDOMEN 2 VIEWS (09/28/20) (1) Atrial fibrillation by electrocardiogram SNOMED Code(s): 578551080 Code(s): I48.91 - UNSPECIFIED ATRIAL FIBRILLATION Current Visit: Yes Problem List Initiated/Reviewed/Updated: Yes My Orders Last 24 Hours: My Active Orders 11/27/20 07:04 EKG 12 Lead [EK] Stat 11/27/20 07:05 EKG Documentation Completion [RC] ASDIRECTED Plan: The patient is an otherwise healthy 60-year-old gentleman without any history of atrial fibrillation. As the patient converted rather quickly and never did have rapid ventricular response rate is likely that his atrial fibrillation was a one-time event. The possibility of having paroxysmal atrial fibrillation is a consideration. I have recommended that the patient upon discharge should be placed on aspirin daily as antiplatelet therapy. Also, the patient should follow up with cardiology. I will continue to follow the patient throughout hospitalization. I would like to thank Dr. Handley for participation in the care of his patient. Requesting Provider: Dr. Jose Handley Date Consult Requested: 11/26/20 Patient History Reviewed: Yes Admission H&P Reviewed: Yes Notified Requestor: Yes
--- NOTE | 2020-11-27 08:23 | PCM.SN.2 ---
- Free Text/Narrative Note: Partial transverse colectomy and sigmoid colectomy for endoscopically unresectable polyps on 11/23/2020. POD 4 S: transient atrial fibrillation noted yesterday evening, with normal rate. Spontaneously resolved. Otherwise no issues. Patient is ambulating, voiding, and abdominal pain is significantly improved. No flatus. O: AF- VSS Awake and alert, no distress Breathing comfortably on room air, walking the halls NG tube in place, canister with watery output RRR, palpable radial pulses Abd incision intact without significant drainage. ARABELLA drain with odorless serosanguinous output, more serous than prior. Less distended and less tender, most tenderness on left side, no rigidity or rebound. Skin warm, dry, No edema Labs show WBC down to 10.3. Hgb down from 12.2 g/dL to 11.3 this AM without clinical evidence of hemorrhage. CRP is elevated at about 350mg/L. Electrolytes wnl. A: Stable on POD 4-with continued post-op ileus. Pain significantly improved. NG placed for decompression yesterday with improvement in symptoms. P: -epidural in place. Dilaudid, tylenol prn pain -IS, OOB, pulmonary toilet -mIVF @ 75cc/hr -NG LIWS. clear liquids. PPI. -heparin 5000 u SC, SCDs for DVT ppx -await return of bowel function
[2020-11-27] MEDS: Pantoprazole 40 MG Tab.CR PO SCH (08:50)
--- NOTE | 2020-11-27 12:43 | PCM.SN.2 ---
- Free Text/Narrative Note: Assessment and re-evaluation of the patient with indwelling epidural catheter. Patient is on her postoperative day 4. Vital signs stable. Lumbar epidural site dressing is clean and intact. Patient is comfortable right now and not interested in any PRN epidural bolus. Plan is not to remove epidural catheter at this time. We will reevaluate the patient within the next 24 hours.
[2020-11-28] MEDS: D5 1/2 NS w/ 20 mEq/L KCl 1,000 ML IV SCH ×2 (03:46→18:05)
[2020-11-28] MEDS: Heparin Sodium 5,000 Units/ML Vial SUBCUT SCH ×3 (03:46→20:37)
--- NOTE | 2020-11-28 07:58 | PCM.SN.2 ---
- Free Text/Narrative Note: Partial transverse colectomy and sigmoid colectomy for endoscopically unresectable polyps on 11/23/2020. POD 5 S: report of chills, sweats overnight, with feeling of stomach being sucked up into chest. Passed BM x 2 with flatus overnight. O: AF- VSS Awake and alert, no distress, appears diaphoretic Breathing comfortably on room air NG tube clamped RRR, palpable radial pulses Abd incision intact without significant drainage. ARABELLA drain with serosanguinous output. Much less distended and less tender, soft, no rigidity or rebound. Skin warm, No edema A: Stable on POD 5-report of flatus and bowel movement overnight. P: -epidural in place, plan to remove this afternoon. Dilaudid, tylenol prn pain -IS, OOB, pulmonary toilet -mIVF @ 75cc/hr -advance diet to full liquids, go slow. PPI. -miralax, colace -heparin 5000 u SC, SCDs for DVT ppx
[2020-11-28] MEDS ORDERED: Phenol 1.4% Oral Spray 177 ML Bottle MUCMEM PRN (07:59)
[2020-11-28] MEDS: Pantoprazole 40 MG Tab.CR PO SCH (09:09)
[2020-11-28] MEDS: Polyethylene Glycol 3350 Powder 17 GM Packet PO SCH ×2 (09:09→20:37)
[2020-11-28] MEDS: Docusate Sodium 100 MG Cap PO SCH ×2 (09:09→20:37)
[2020-11-28] MEDS: Benzocaine/Cetylpyridinium/Menthol Lozenge MUCMEM PRN (09:09)
[2020-11-28] MEDS: Simethicone 80 MG Tab.Chew PO PRN (09:10)
--- NOTE | 2020-11-28 10:00 | PCM.PN ---
- General Info Date of Service: 11/28/20 Admission Dx/Problem (Free Text): Admission Diagnosis/Problem Admission Diagnosis/Problem Colon polyp Subjective Update: Internal medicine consult. POD #5. Surgeon, Dr. Handley, has requested internal medicine consult for the patient's atrial fibrillation. The patient is currently in normal sinus rhythm and has been for at least the past 24 hours. The patient otherwise has been doing well. He has no complaints. NG tube has been removed. The patient also has been ambulating. Functional Status: Reports: Pain Controlled - Review of Systems General: Reports: No Symptoms HEENT: Reports: No Symptoms Pulmonary: Reports: No Symptoms Cardiovascular: Reports: No Symptoms Gastrointestinal: Reports: Abdominal Pain, Flatus, Other (2 bowel movements) Genitourinary: Reports: No Symptoms Musculoskeletal: Reports: No Symptoms Skin: Reports: No Symptoms Neurological: Reports: No Symptoms Psychiatric: Reports: No Symptoms - Patient Data Vitals - Most Recent: Last Vital Signs Temp 37.1 C 11/28/20 03:35 Pulse 71 11/27/20 16:00 Resp 20 11/28/20 03:35 BP 140/84 11/28/20 03:35 Pulse Ox 95 11/28/20 03:35 Weight - Most Recent: 96.978 kg I&O - Last 24 Hours: Intake & Output 11/27/20 11/28/20 11/28/20 22:59 06:59 14:59 Intake Total 1500 1079 Output Total 1475 600 200 Balance 25 479 -200 Med Orders - Current: Current Medications Acetaminophen (Tylenol) 650 mg PO Q6H PRN PRN Reason: Pain Last Admin: 11/26/20 11:20 Dose: 650 mg Documented by: Benzocaine/Menthol (Cepacol Sore Throat) 1 lozenge MUCMEM Q6H PRN PRN Reason: Sore Throat Last Admin: 11/28/20 09:09 Dose: 1 lozenge Documented by: Diphenhydramine HCl (Benadryl) 25 mg IVPUSH Q6H PRN PRN Reason: Pruritis Docusate Sodium (Colace) 100 mg PO BID [facility] Last Admin: 11/28/20 09:09 Dose: 100 mg Documented by: Ephedrine Sulfate (Ephedrine Sulfate) 5 mg IVPUSH ASDIRECTED PRN PRN Reason: Hypotension Fentanyl (Sublimaze) 50 mcg IVPUSH Q5M PRN PRN Reason: Pain Heparin Sodium (Porcine) (Heparin Sodium) 5,000 units SUBCUT Q8H [facility] Last Admin: 11/28/20 03:46 Dose: 5,000 units Documented by: Hydromorphone HCl (Dilaudid) 0.5 mg IVPUSH Q2H PRN PRN Reason: Pain Potassium Chloride/Dextrose/Sod Cl (D5 1/2 Ns W/ 20 Meq/L Kcl) 1,000 mls @ 75 mls/hr IV ASDIRECTED [facility] Last Admin: 11/28/20 03:46 Dose: 75 mls/hr Documented by: Morphine Sulfate (Morphine) 1 mg IVPUSH Q2H PRN PRN Reason: Pain (severe 7-10) Last Admin: 11/26/20 04:14 Dose: 1 mg Documented by: Morphine Sulfate (Duramorph Pf) 0 mg EPIDUR Q12H PRN PRN Reason: Pain Stop: 11/30/20 23:59 Last Admin: 11/26/20 13:29 Dose: 5 mg Documented by: Ondansetron HCl (Zofran) 4 mg IVPUSH Q6H PRN PRN Reason: Nausea Pantoprazole Sodium (Protonix) 40 mg PO DAILY [facility] Last Admin: 11/28/20 09:09 Dose: 40 mg Documented by: Phenol/Menthol (Chloraseptic Throat [place]) 0 ml MUCMEM Q2H PRN PRN Reason: Sore Throat Polyethylene Glycol (Miralax) 17 gm PO BID [facility] Last Admin: 11/28/20 09:09 Dose: 17 gm Documented by: Simethicone (Simethicone) 80 mg PO Q6H PRN PRN Reason: Gas Last Admin: 11/28/20 09:10 Dose: 80 mg Documented by: Discontinued Medications Acetaminophen (Tylenol) 975 mg PO Q8H [facility] Acetaminophen (Tylenol) 975 mg PO Q8H [facility] Last Admin: 11/25/20 04:53 Dose: 975 mg Documented by: Dexamethasone (Dexamethasone) Confirm Administered Dose 20 mg .ROUTE .STK-MED ONE Stop: 11/23/20 09:02 Dexamethasone (Dexamethasone) Confirm Administered Dose 20 mg .ROUTE .STK-MED ONE Stop: 11/23/20 15:57 Dexmedetomidine HCl (Precedex) 40 mcg IT Q6H PRN PRN Reason: Pain Stop: 11/27/20 16:01 Last Admin: 11/25/20 16:18 Dose: 40 mcg Documented by: Dexmedetomidine HCl (Precedex) Confirm Administered Dose 200 mcg .ROUTE .STK-MED ONE Stop: 11/25/20 16:10 Last Admin: 11/25/20 17:38 Dose: Not Given Documented by: Diphenhydramine HCl (Benadryl) 25 mg IVPUSH Q6H PRN PRN Reason: pruritis Stop: 11/23/20 18:00 Diphenhydramine HCl (Benadryl) 25 mg IVPUSH Q6H PRN PRN Reason: pruritis Last Admin: 11/24/20 08:56 Dose: 25 mg Documented by: Fentanyl (Sublimaze) Confirm Administered Dose 250 mcg .ROUTE .STK-MED ONE Stop: 11/23/20 08:56 Glycopyrrolate (Robinul) Confirm Administered Dose 0.4 mg .ROUTE .STK-MED ONE Stop: 11/23/20 16:24 Heparin Sodium (Porcine) (Heparin Sodium) 5,000 units SUBCUT Q8H [facility] Lactated Ringer's (Ringers, Lactated) 1,000 mls @ 125 mls/hr IV ASDIRECTED [facility] Stop: 11/23/20 23:00 Last Admin: 11/23/20 09:25 Dose: 125 mls/hr Documented by: Lidocaine HCl (Xylocaine-Mpf 1%) Confirm Administered Dose 4 mls @ as directed .ROUTE .STK-MED ONE Stop: 11/23/20 08:58 Cefoxitin Sodium 2 gm/ Premix 50 mls @ 100 mls/hr IV ONETIME ONE Stop: 11/23/20 09:59 Last Admin: 11/23/20 09:57 Dose: 100 mls/hr Documented by: Lactated Ringer's (Ringers, Lactated) Confirm Administered Dose 1,000 mls @ as directed .ROUTE .STK-MED ONE Stop: 11/23/20 16:43 Lactated Ringer's (Ringers, Lactated) Confirm Administered Dose 1,000 mls @ as directed .ROUTE .STK-MED ONE Stop: 11/23/20 16:43 Lactated Ringer's (Ringers, Lactated) 1,000 mls @ 150 mls/hr IV ASDIRECTED [facility] Last Infusion: 11/24/20 07:50 Dose: 100 mls/hr Documented by: Lactated Ringer's (Ringers, Lactated) 1,000 mls @ 100 mls/hr IV ASDIRECTED [facility] Last Admin: 11/24/20 22:51 Dose: 100 mls/hr Documented by: Sodium Chloride (Sodium Chloride 0.45%) 1,000 mls @ 50 mls/hr IV ASDIRECTED [facility] Last Admin: 11/25/20 08:06 Dose: 50 mls/hr Documented by: Pantoprazole Sodium 40 mg/ (Sodium Chloride) 100 mls @ 200 mls/hr IV DAILY [facility] Potassium Chloride/Dextrose/Sod Cl (D5 1/2 Ns W/ 20 Meq/L Kcl) 1,000 mls @ 30 mls/hr IV ASDIRECTED [facility] Last Infusion: 11/26/20 17:59 Dose: 100 mls/hr Documented by: Lactated Ringer's (Ringers, Lactated) 500 mls @ 999 mls/hr IV .BOLUS ONE Stop: 11/26/20 13:08 Last Admin: 11/26/20 12:44 Dose: 999 mls/hr Documented by: Potassium Chloride/Dextrose/Sod Cl (D5 1/2 Ns W/ 20 Meq/L Kcl) 1,000 mls @ 100 mls/hr IV ASDIRECTED [facility] Last Infusion: 11/27/20 13:33 Dose: 75 mls/hr Documented by: Lactated Ringer's (Ringers, Lactated) 500 mls @ 999 mls/hr IV .BOLUS ONE Stop: 11/26/20 19:45 Last Admin: 11/26/20 19:15 Dose: 999 mls/hr Documented by: Influenza Virus Vaccine (Fluzone Quad [id number] Syringe) 60 mcg IM .ONCE ONE Stop: 11/23/20 10:01 Last Admin: 11/25/20 17:59 Dose: Not Given Documented by: Lidocaine/Epinephrine (Xylocaine-Mpf 2%-Epi 1:200,000) Confirm Administered Dose 20 ml .ROUTE .STK-MED ONE Stop: 11/23/20 07:49 Lidocaine/Epinephrine (Xylocaine 1% With Epinephrine 1:100,000) Confirm Administered Dose 40 ml .ROUTE .STK-MED ONE Stop: 11/23/20 10:30 Last Admin: 11/23/20 12:17 Dose: 13 ml Documented by: Lidocaine/Sodium Bicarbonate (Buffered Lidocaine 1% In Ns 8.4%) 0.25 ml IDERM ONETIME PRN PRN Reason: Prior to IV Start Stop: 11/23/20 18:00 Last Admin: 11/23/20 09:35 Dose: 0.25 ml Documented by: Midazolam HCl (Versed 1 Mg/Ml) Confirm Administered Dose 2 mg .ROUTE .STK-MED ONE Stop: 11/23/20 08:56 Midazolam HCl (Versed 1 Mg/Ml) Confirm Administered Dose 2 mg .ROUTE .STK-MED ONE Stop: 11/23/20 10:55 Miscellaneous Information (Remove Patch) 1 ea TRDERM ONETIME ONE Stop: 11/26/20 11:01 Last Admin: 11/26/20 11:21 Dose: 1 ea Documented by: Morphine Sulfate (Duramorph Pf) Confirm Administered Dose 10 mg .ROUTE .STK-MED ONE Stop: 11/23/20 15:17 Morphine Sulfate (Duramorph Pf) Confirm Administered Dose 10 mg .ROUTE .STK-MED ONE Stop: 11/24/20 13:34 Morphine Sulfate (Duramorph Pf) Confirm Administered Dose 10 mg .ROUTE .STK-MED ONE Stop: 11/25/20 08:06 Morphine Sulfate (Duramorph Pf) Confirm Administered Dose 10 mg .ROUTE .STK-MED ONE Stop: 11/26/20 12:27 Ondansetron HCl (Zofran) Confirm Administered Dose 4 mg .ROUTE .STK-MED ONE Stop: 11/23/20 09:02 Ondansetron HCl (Zofran) 4 mg IVPUSH ONETIME PRN PRN Reason: Nausea/Vomiting Stop: 11/23/20 18:00 Ondansetron HCl (Zofran) 4 mg IVPUSH ONETIME PRN PRN Reason: Nausea/Vomiting Last Admin: 11/25/20 14:16 Dose: 4 mg Documented by: Ondansetron HCl (Zofran) Confirm Administered Dose 4 mg .ROUTE .STK-MED ONE Stop: 11/25/20 13:58 Last Admin: 11/25/20 15:33 Dose: Not Given Documented by: Propofol (Diprivan 20 Ml) Confirm Administered Dose 400 mg .ROUTE .STK-MED ONE Stop: 11/23/20 08:55 Propofol (Diprivan 20 Ml) Confirm Administered Dose 200 mg .ROUTE .STK-MED ONE Stop: 11/23/20 08:57 Propofol (Diprivan 20 Ml) Confirm Administered Dose 200 mg .ROUTE .STK-MED ONE Stop: 11/23/20 15:28 Rocuronium [place] (Zemuron) Confirm Administered Dose 50 mg .ROUTE .STK-MED ONE Stop: 11/23/20 09:00 Scopolamine (Transderm-Scop) 1.5 mg TRDERM ONETIME ONE Stop: 11/23/20 11:01 Last Admin: 11/23/20 10:28 Dose: 1.5 mg Documented by: Sodium Chloride (Saline Flush) 10 ml FLUSH ASDIRECTED PRN PRN Reason: Keep Vein Open Stop: 11/23/20 18:00 Last Admin: 11/23/20 09:35 Dose: 10 ml Documented by: - Exam Quality Assessment: DVT Prophylaxis. No: Supplemental Oxygen General: Alert, Oriented, Cooperative HEENT: Pupils Equal, Pupils Reactive, EOMI Neck: Supple, Trachea Midline Lungs: Clear to Auscultation, Normal Respiratory Effort Cardiovascular: Regular Rate, Regular Rhythm GI/Abdominal Exam: Normal Bowel Sounds (Hypoactive), Soft, Non-Tender, No D istention (Male) Exam: Deferred Back Exam: Normal Inspection, Full Range of Motion Extremities: Normal Inspection, Normal Range of Motion, No Pedal Edema Skin: Warm, Dry, Intact Neurological: No New Focal Deficit, Normal Gait Psy/Mental Status: Alert, Normal Affect, Normal Mood Sepsis Event Note - Evaluation Sepsis Screening Result: No Definite Risk - Focused Exam Vital Signs: Vital Signs Temp Temp Resp BP Pulse Ox 11/28/20 03:35 37.1 C 20 140/84 95 11/27/20 23:40 36.4 C 19 136/84 94 L - Problem List & Annotations (1) Atrial fibrillation by electrocardiogram SNOMED Code(s): 317780988 Code(s): I48.91 - UNSPECIFIED ATRIAL FIBRILLATION Status: Resolved Current Visit: Yes - Problem List Review Problem List Initiated/Reviewed/Updated: Yes - Assessment Assessment:: Patient is a 60-year-old gentleman who is seen in consultation by internal medicine as requested by Dr. Handley. The patient had been previously in atrial fibrillation however, this is resolved. The patient remains stable at this time. Would recommend follow-up with cardiology upon discharge. We will continue to monitor the patient with telemetry. We will continue to follow the patient with Dr. Handley.
[2020-11-28] MEDS ORDERED: Dexmedetomidine 200 MCG/2 ML SDV ONE (12:46)
[2020-11-28] MEDS ORDERED: Morphine PF 10 MG/10 ML SDV ONE (12:55)
[2020-11-28] MEDS: Morphine PF 10 MG/10 ML SDV EPIDUR PRN (13:06)
--- NOTE | 2020-11-28 13:37 | PCM.SN.2 ---
- Free Text/Narrative Note: Patient is on her postoperative day 5. Vital signs stable. Lumbar epidural site dressing is clean and intact. Over last night the patient has experienced increase in pain and currently complains on incisional pain 8/10 when moving. At 13:20 5 mg of Duramorph was given via the epidural catheter. Per discussion with Dr. Syed Handley, a decision was made to remove the epidural. Pain coverage to be continued by PRN IV/PO opioid and non-opioid analgetics. Epidural catheter was removed and the tip was found intact. 2x2 gauze with Tegaderm dressing applied. This resumes anesthetic management of indwelling epidural catheter. The patient may have a regional truncal block within the next 24 hours for incisional pain coverage if needed. Thank you very much for allowing us to take care of this patient.
[2020-11-29] MEDS: Heparin Sodium 5,000 Units/ML Vial SUBCUT SCH ×3 (04:16→19:00)
[2020-11-29] MEDS: Benzocaine/Cetylpyridinium/Menthol Lozenge MUCMEM PRN (04:16)
[2020-11-29] MEDS: Acetaminophen 325 MG Tab PO PRN ×3 (07:49→21:04)
[2020-11-29] MEDS: Pantoprazole 40 MG Tab.CR PO SCH (08:06)
[2020-11-29] MEDS: Docusate Sodium 100 MG Cap PO SCH ×2 (08:06→21:04)
[2020-11-29] MEDS: Polyethylene Glycol 3350 Powder 17 GM Packet PO SCH ×2 (08:06→21:04)
--- NOTE | 2020-11-29 08:35 | PCM.SN.2 ---
- Free Text/Narrative Note: Partial transverse colectomy and sigmoid colectomy for endoscopically unresectable polyps on 11/23/2020. POD 6 S: reports some gas bloat. Vomited once overnight. Reports passing some flatus this morning. O: AF- VSS Awake and alert, no distress Breathing comfortably on room air RRR, palpable radial pulses Abd incision intact without significant drainage. ARABELLA drain with serosanguinous output. Soft, slightly distended, appropriately tender. Skin warm, dry, No edema A: Stable on POD 6 P: -epidural removed yesterday. Dilaudid, tylenol prn pain -IS, OOB, pulmonary toilet -mIVF @ 75cc/hr -advance diet to regular diet, go slow. PPI. -miralax, colace -ARABELLA drain removed -heparin 5000 u SC, SCDs for DVT ppx -possible discharge to home tomorrow if doing well with diet and continuing to pass flatus/stool.
[2020-11-29] MEDS: Simethicone 80 MG Tab.Chew PO PRN ×3 (14:46→21:04)
[2020-11-29] MEDS ORDERED: Bisacodyl 10 MG Supp RECTAL ONE (16:23)
--- NOTE | 2020-11-29 17:46 | PCM.CONSN ---
- General Info Date of Service: 11/29/20 Admission Dx/Problem (Free Text): Admission Diagnosis/Problem Admission Diagnosis/Problem Colon polyp Subjective Update: Patient is doing well without any further recurrence of atrial fibrillation. He denies any shortness of breath, chest pain, wheezing, or cough. Patient had abdominal met yesterday but has not had 1 so far today. Functional Status: Reports: Pain Controlled - Review of Systems General: Reports: No Symptoms HEENT: Reports: No Symptoms Pulmonary: Reports: No Symptoms Cardiovascular: Reports: No Symptoms - Patient Data Vitals - Most Recent: Last Vital Signs Temp 98.7 F 11/29/20 12:00 Pulse 69 11/29/20 12:00 Resp 18 11/29/20 12:00 BP 144/96 H 11/29/20 12:00 Pulse Ox 96 11/29/20 12:00 Weight - Most Recent: 211 lb 9.6 oz I&O - Last 24 Hours: Intake & Output 11/29/20 11/29/20 11/29/20 06:59 14:59 22:59 Intake Total 1570 1578 Output Total 400 180 Balance 1170 1398 Med Orders - Current: Current Medications Acetaminophen (Tylenol) 650 mg PO Q6H PRN PRN Reason: Pain Last Admin: 11/29/20 14:46 Dose: 650 mg Documented by: Benzocaine/Menthol (Cepacol Sore Throat) 1 lozenge MUCMEM Q6H PRN PRN Reason: Sore Throat Last Admin: 11/29/20 04:16 Dose: 1 lozenge Documented by: Diphenhydramine HCl (Benadryl) 25 mg IVPUSH Q6H PRN PRN Reason: Pruritis Docusate Sodium (Colace) 100 mg PO BID [facility] Last Admin: 11/29/20 08:06 Dose: 100 mg Documented by: Ephedrine Sulfate (Ephedrine Sulfate) 5 mg IVPUSH ASDIRECTED PRN PRN Reason: Hypotension Fentanyl (Sublimaze) 50 mcg IVPUSH Q5M PRN PRN Reason: Pain Heparin Sodium (Porcine) (Heparin Sodium) 5,000 units SUBCUT Q8H [facility] Last Admin: 11/29/20 12:12 Dose: 5,000 units Documented by: Hydromorphone HCl (Dilaudid) 0.5 mg IVPUSH Q2H PRN PRN Reason: Pain Potassium Chloride/Dextrose/Sod Cl (D5 1/2 Ns W/ 20 Meq/L Kcl) 1,000 mls @ 75 mls/hr IV ASDIRECTED [facility] Last Admin: 11/28/20 18:05 Dose: 75 mls/hr Documented by: Morphine Sulfate (Morphine) 1 mg IVPUSH Q2H PRN PRN Reason: Pain (severe 7-10) Last Admin: 11/26/20 04:14 Dose: 1 mg Documented by: Morphine Sulfate (Duramorph Pf) 0 mg EPIDUR Q12H PRN PRN Reason: Pain Stop: 11/30/20 23:59 Last Admin: 11/28/20 13:06 Dose: 5 mg Documented by: Ondansetron HCl (Zofran) 4 mg IVPUSH Q6H PRN PRN Reason: Nausea Pantoprazole Sodium (Protonix) 40 mg PO DAILY [facility] Last Admin: 11/29/20 08:06 Dose: 40 mg Documented by: Phenol/Menthol (Chloraseptic Throat [place]) 0 ml MUCMEM Q2H PRN PRN Reason: Sore Throat Polyethylene Glycol (Miralax) 17 gm PO BID [facility] Last Admin: 11/29/20 08:06 Dose: 17 gm Documented by: Simethicone (Simethicone) 80 mg PO Q4H PRN PRN Reason: Gas Last Admin: 11/29/20 17:01 Dose: 80 mg Documented by: Discontinued Medications Acetaminophen (Tylenol) 975 mg PO Q8H [facility] Acetaminophen (Tylenol) 975 mg PO Q8H [facility] Last Admin: 11/25/20 04:53 Dose: 975 mg Documented by: Bisacodyl (Dulcolax) 10 mg RECTAL ONETIME ONE Stop: 11/29/20 16:24 Last Admin: 11/29/20 17:01 Dose: 10 mg Documented by: Dexamethasone (Dexamethasone) Confirm Administered Dose 20 mg .ROUTE .STK-MED ONE Stop: 11/23/20 09:02 Dexamethasone (Dexamethasone) Confirm Administered Dose 20 mg .ROUTE .STK-MED ONE Stop: 11/23/20 15:57 Dexmedetomidine HCl (Precedex) 40 mcg IT Q6H PRN PRN Reason: Pain Stop: 11/27/20 16:01 Last Admin: 11/25/20 16:18 Dose: 40 mcg Documented by: Dexmedetomidine HCl (Precedex) Confirm Administered Dose 200 mcg .ROUTE .STK-MED ONE Stop: 11/25/20 16:10 Last Admin: 11/25/20 17:38 Dose: Not Given Documented by: Dexmedetomidine HCl (Precedex) Confirm Administered Dose 200 mcg .ROUTE .STK-MED ONE Stop: 11/28/20 12:47 Diphenhydramine HCl (Benadryl) 25 mg IVPUSH Q6H PRN PRN Reason: pruritis Stop: 11/23/20 18:00 Diphenhydramine HCl (Benadryl) 25 mg IVPUSH Q6H PRN PRN Reason: pruritis Last Admin: 11/24/20 08:56 Dose: 25 mg Documented by: Fentanyl (Sublimaze) Confirm Administered Dose 250 mcg .ROUTE .STK-MED ONE Stop: 11/23/20 08:56 Glycopyrrolate (Robinul) Confirm Administered Dose 0.4 mg .ROUTE .STK-MED ONE Stop: 11/23/20 16:24 Heparin Sodium (Porcine) (Heparin Sodium) 5,000 units SUBCUT Q8H [facility] Lactated Ringer's (Ringers, Lactated) 1,000 mls @ 125 mls/hr IV ASDIRECTED [facility] Stop: 11/23/20 23:00 Last Admin: 11/23/20 09:25 Dose: 125 mls/hr Documented by: Lidocaine HCl (Xylocaine-Mpf 1%) Confirm Administered Dose 4 mls @ as directed .ROUTE .STK-MED ONE Stop: 11/23/20 08:58 Cefoxitin Sodium 2 gm/ Premix 50 mls @ 100 mls/hr IV ONETIME ONE Stop: 11/23/20 09:59 Last Admin: 11/23/20 09:57 Dose: 100 mls/hr Documented by: Lactated Ringer's (Ringers, Lactated) Confirm Administered Dose 1,000 mls @ as directed .ROUTE .STK-MED ONE Stop: 11/23/20 16:43 Lactated Ringer's (Ringers, Lactated) Confirm Administered Dose 1,000 mls @ as directed .ROUTE .STK-MED ONE Stop: 11/23/20 16:43 Lactated Ringer's (Ringers, Lactated) 1,000 mls @ 150 mls/hr IV ASDIRECTED [facility] Last Infusion: 11/24/20 07:50 Dose: 100 mls/hr Documented by: Lactated Ringer's (Ringers, Lactated) 1,000 mls @ 100 mls/hr IV ASDIRECTED [facility] Last Admin: 11/24/20 22:51 Dose: 100 mls/hr Documented by: Sodium Chloride (Sodium Chloride 0.45%) 1,000 mls @ 50 mls/hr IV ASDIRECTED [facility] Last Admin: 11/25/20 08:06 Dose: 50 mls/hr Documented by: Pantoprazole Sodium 40 mg/ (Sodium Chloride) 100 mls @ 200 mls/hr IV DAILY [facility] Potassium Chloride/Dextrose/Sod Cl (D5 1/2 Ns W/ 20 Meq/L Kcl) 1,000 mls @ 30 mls/hr IV ASDIRECTED [facility] Last Infusion: 11/26/20 17:59 Dose: 100 mls/hr Documented by: Lactated Ringer's (Ringers, Lactated) 500 mls @ 999 mls/hr IV .BOLUS ONE Stop: 11/26/20 13:08 Last Admin: 11/26/20 12:44 Dose: 999 mls/hr Documented by: Potassium Chloride/Dextrose/Sod Cl (D5 1/2 Ns W/ 20 Meq/L Kcl) 1,000 mls @ 100 mls/hr IV ASDIRECTED [facility] Last Infusion: 11/27/20 13:33 Dose: 75 mls/hr Documented by: Lactated Ringer's (Ringers, Lactated) 500 mls @ 999 mls/hr IV .BOLUS ONE Stop: 11/26/20 19:45 Last Admin: 11/26/20 19:15 Dose: 999 mls/hr Documented by: Influenza Virus Vaccine (Fluzone Quad [id number] Syringe) 60 mcg IM .ONCE ONE Stop: 11/23/20 10:01 Last Admin: 11/25/20 17:59 Dose: Not Given Documented by: Lidocaine/Epinephrine (Xylocaine-Mpf 2%-Epi 1:200,000) Confirm Administered Dose 20 ml .ROUTE .STK-MED ONE Stop: 11/23/20 07:49 Lidocaine/Epinephrine (Xylocaine 1% With Epinephrine 1:100,000) Confirm Administered Dose 40 ml .ROUTE .STK-MED ONE Stop: 11/23/20 10:30 Last Admin: 11/23/20 12:17 Dose: 13 ml Documented by: Lidocaine/Sodium Bicarbonate (Buffered Lidocaine 1% In Ns 8.4%) 0.25 ml IDERM ONETIME PRN PRN Reason: Prior to IV Start Stop: 11/23/20 18:00 Last Admin: 11/23/20 09:35 Dose: 0.25 ml Documented by: Midazolam HCl (Versed 1 Mg/Ml) Confirm Administered Dose 2 mg .ROUTE .STK-MED ONE Stop: 11/23/20 08:56 Midazolam HCl (Versed 1 Mg/Ml) Confirm Administered Dose 2 mg .ROUTE .STK-MED ONE Stop: 11/23/20 10:55 Miscellaneous Information (Remove Patch) 1 ea TRDERM ONETIME ONE Stop: 11/26/20 11:01 Last Admin: 11/26/20 11:21 Dose: 1 ea Documented by: Morphine Sulfate (Duramorph Pf) Confirm Administered Dose 10 mg .ROUTE .STK-MED ONE Stop: 11/23/20 15:17 Morphine Sulfate (Duramorph Pf) Confirm Administered Dose 10 mg .ROUTE .STK-MED ONE Stop: 11/24/20 13:34 Morphine Sulfate (Duramorph Pf) Confirm Administered Dose 10 mg .ROUTE .STK-MED ONE Stop: 11/25/20 08:06 Morphine Sulfate (Duramorph Pf) Confirm Administered Dose 10 mg .ROUTE .STK-MED ONE Stop: 11/26/20 12:27 Morphine Sulfate (Duramorph Pf) Confirm Administered Dose 10 mg .ROUTE .STK-MED ONE Stop: 11/28/20 12:56 Ondansetron HCl (Zofran) Confirm Administered Dose 4 mg .ROUTE .STK-MED ONE Stop: 11/23/20 09:02 Ondansetron HCl (Zofran) 4 mg IVPUSH ONETIME PRN PRN Reason: Nausea/Vomiting Stop: 11/23/20 18:00 Ondansetron HCl (Zofran) 4 mg IVPUSH ONETIME PRN PRN Reason: Nausea/Vomiting Last Admin: 11/25/20 14:16 Dose: 4 mg Documented by: Ondansetron HCl (Zofran) Confirm Administered Dose 4 mg .ROUTE .STK-MED ONE Stop: 11/25/20 13:58 Last Admin: 11/25/20 15:33 Dose: Not Given Documented by: Propofol (Diprivan 20 Ml) Confirm Administered Dose 400 mg .ROUTE .STK-MED ONE Stop: 11/23/20 08:55 Propofol (Diprivan 20 Ml) Confirm Administered Dose 200 mg .ROUTE .STK-MED ONE Stop: 11/23/20 08:57 Propofol (Diprivan 20 Ml) Confirm Administered Dose 200 mg .ROUTE .STK-MED ONE Stop: 11/23/20 15:28 Rocuronium [place] (Zemuron) Confirm Administered Dose 50 mg .ROUTE .STK-MED ONE Stop: 11/23/20 09:00 Scopolamine (Transderm-Scop) 1.5 mg TRDERM ONETIME ONE Stop: 11/23/20 11:01 Last Admin: 11/23/20 10:28 Dose: 1.5 mg Documented by: Simethicone (Simethicone) 80 mg PO Q6H PRN PRN Reason: Gas Last Admin: 11/29/20 14:46 Dose: 80 mg Documented by: Sodium Chloride (Saline Flush) 10 ml FLUSH ASDIRECTED PRN PRN Reason: Keep Vein Open Stop: 11/23/20 18:00 Last Admin: 11/23/20 09:35 Dose: 10 ml Documented by: - Exam Quality Assessment: No: Supplemental Oxygen General: Alert, Oriented HEENT: Pupils Equal, Mucous Membr. Moist/[place] Neck: Supple Lungs: Clear to Auscultation, Normal Respiratory Effort Cardiovascular: Regular Rate, Regular Rhythm Extremities: Normal Inspection, No Pedal Edema, Normal Capillary Refill Skin: Warm, Dry, Intact Psy/Mental Status: Alert, Normal Affect, Normal Mood Sepsis Event Note - Evaluation Sepsis Screening Result: No Definite Risk - Focused Exam Vital Signs: Vital Signs Temp Pulse Resp BP Pulse Ox 11/29/20 12:00 98.7 F 69 18 144/96 H 96 11/29/20 07:58 98.2 F 18 148/95 H 97 Consult PN Assessment/Plan Procedures: Procedures ASSAY OF BLOOD/URIC ACID (09/28/20) ASSAY OF LACTIC ACID (09/28/20) ASSAY THYROID STIM HORMONE (09/28/20) BL SMEAR W/DIFF WBC COUNT (10/28/20) C-REACTIVE PROTEIN (09/28/20) COLONOSCOPY AND BIOPSY (10/28/20) COLONOSCOPY SUBMUCOUS NJX (10/28/20) COLONOSCOPY W/LESION REMOVAL (10/28/20) COMPLETE CBC AUTOMATED (10/28/20) COMPLETE CBC W/AUTO DIFF WBC (09/28/20) COMPREHEN METABOLIC PANEL (10/28/20) CT ABD & PELV W/CONTRAST (10/28/20) CT THORAX DX C+ (10/28/20) GLYCOSYLATED HEMOGLOBIN TEST (09/28/20) LIPID PANEL (09/28/20) OFFICE O/P EST MINIMAL PROB (11/20/20) ROUTINE VENIPUNCTURE (10/28/20) SARS-COV-2 COVID-19 AMP PRB (11/20/20) TISSUE EXAM BY PATHOLOGIST (10/28/20) UR ALBUMIN SEMIQUANTITATIVE (09/28/20) URINALYSIS AUTO W/O SCOPE (09/28/20) VITAMIN B-12 (09/28/20) VITAMIN D 25 HYDROXY (09/28/20) X-RAY EXAM ABDOMEN 2 VIEWS (09/28/20) (1) Atrial fibrillation by electrocardiogram SNOMED Code(s): 382753272 Code(s): I48.91 - UNSPECIFIED ATRIAL FIBRILLATION Current Visit: Yes Problem List Initiated/Reviewed/Updated: Yes Plan: [id number] male post colon resection for Sigmoid colon resection, segmental proximal transverse colectomy. Hospitalist service was consulted secondary to Ishan sanchez RVR. Patient converted back to sinus rhythm without treatment and has been in sinus rhythm now for over 48 hours. At this point patient is stable from a medical standpoint and we will sign off. Please feel free to reconsult us if symptoms recur.
[2020-11-29] MEDS: D5 1/2 NS w/ 20 mEq/L KCl 1,000 ML IV SCH (21:23)
[2020-11-30] MEDS: Benzocaine/Cetylpyridinium/Menthol Lozenge MUCMEM PRN ×2 (04:06→12:25)
[2020-11-30] MEDS: Acetaminophen 325 MG Tab PO PRN ×2 (04:06→10:18)
[2020-11-30] MEDS: Heparin Sodium 5,000 Units/ML Vial SUBCUT SCH ×2 (04:06→12:24)
--- NOTE | 2020-11-30 08:17 | PCM.SN.2 ---
- Free Text/Narrative Note: Partial transverse colectomy and sigmoid colectomy for endoscopically unresectable polyps on 11/23/2020. POD 7 S: feeling much better. Had some diarrhea a few times since yesterday afternoon and reports lots of flatus. Has appetite this morning. had some nausea after receiving dilaudid. O: AF- VSS Awake and alert, no distress Breathing comfortably on room air RRR, palpable radial pulses Abd incision intact without significant drainage. Soft, less tender, less distended. Skin warm, dry, No edema A: Overall doing well on POD 7, with evidence of return of bowel function P: -tylenol prn pain -IS, OOB, pulmonary toilet -mIVF @ 75cc/hr -regular diet -stop bowel regimen -heparin 5000 u SC, SCDs for DVT ppx -possible discharge to home this afternoon if doing well with diet and continuing to pass flatus/stool.
[2020-11-30] MEDS: Pantoprazole 40 MG Tab.CR PO SCH (08:41)
--- NOTE | 2020-11-30 16:37 | PCM.DCSUM1 ---
Discharge Summary - Hospital Course Free Text/Narrative:: Mr. Oswald presented for elective colon resection x 2 for endoscopically unresectable polyps, including a small section of the proximal transverse colon and sigmoid colectomy, on 11/23/2020. 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 Postoperatively, his pain was managed with an epidural. He had a post-operative ileus managed with NG decompression until the re was evidence of return of bowel function. He also had a brief run of self- limited, rate controlled atrial fibrillation on POD 3, which was not treated with medication. He remained in sinus rhythm for the rest of the hospitalization after this episode. A hospitalist consult was placed on no further intervention or work-up performed. He will follow up with his PCP as outpatient. Repeat labs on POD 4 showed WBC of 10.3 and elevated CRP of about 350 mg/L. His ARABELLA drain output remained serosanguinous and was removed from the pelvis on POD 5. The epidural was removed on POD 5. By POD 7, his pain was manageable with tylenol alone. He was ambulatory, tolerating a regular diet, passing flatus and stool, and overall feeling ready for discharge to home. Diagnosis: Stroke: No - Discharge Data Discharge Date: 11/30/20 Discharge Disposition: Home, Self-Care 01 Condition: Good - Referral to Home Health Primary Care Physician: Luis Lewis MD - Patient Summary/Data Operative Procedure(s) Performed: open partial colectomy x 2 Consults: Consultations 11/26/20 19:00 Consult to Physician [CONS] Routine - Patient Instructions Diet: Usual Diet as Tolerated Activity: No Lifting Over 10 Pounds, No Strenuous Activities Showering/Bathing: May Shower Wound/Incision Care: Keep Operative Site/Wound Site Clean and Dry Notify Provider of: Fever, Increased Pain, Swelling and Redness, Drainage, Nausea and/or Vomiting - Discharge Plan *PRESCRIPTION DRUG MONITORING PROGRAM REVIEWED*: Not Applicable *COPY OF PRESCRIPTION DRUG MONITORING REPORT IN PATIENT RODNEY: Not Applicable Home Medications: Home Meds Cholecalciferol (Vitamin D3) [Vitamin D] 1 tab PO DAILY 11/23/20 [History] L.acidoph,Paracasei, B.lactis [Probiotic] 1 tab PO DAILY 11/23/20 [History] Multivitamin 1 tab PO DAILY 11/23/20 [History] Oxygen Therapy Mode: Room Air Patient Handouts: Open Colectomy, Care After, Atrial Fibrillation, [id number] Referrals: Luis Lewis MD [Primary Care Provider] - Jose Handley MD [Physician] - - Discharge Summary/Plan Comment DC Time >30 min.: No Discharge Summary/Plan Comment: PLan for clinic follow up with [facility] next 12/06/2020, for evaluation and staple removal. - Patient Data Vitals - Most Recent: Last Vital Signs Temp 37.1 C 11/30/20 12:00 Pulse 67 11/30/20 12:00 Resp 18 11/30/20 12:00 BP 149/91 H 11/30/20 12:00 Pulse Ox 97 11/30/20 12:00 Weight - Most Recent: 96.57 kg I&O - Last 24 hours: Intake & Output 11/30/20 11/30/20 11/30/20 06:59 14:59 22:59 Intake Total 1187 Balance 1187 Med Orders - Current: Current Medications Acetaminophen (Tylenol) 650 mg PO Q6H PRN PRN Reason: Pain Last Admin: 11/30/20 10:18 Dose: 650 mg Documented by: Benzocaine/Menthol (Cepacol Sore Throat) 1 lozenge MUCMEM Q6H PRN PRN Reason: Sore Throat Last Admin: 11/30/20 12:25 Dose: 1 lozenge Documented by: Diphenhydramine HCl (Benadryl) 25 mg IVPUSH Q6H PRN PRN Reason: Pruritis Ephedrine Sulfate (Ephedrine Sulfate) 5 mg IVPUSH ASDIRECTED PRN PRN Reason: Hypotension Fentanyl (Sublimaze) 50 mcg IVPUSH Q5M PRN PRN Reason: Pain Heparin Sodium (Porcine) (Heparin Sodium) 5,000 units SUBCUT Q8H RICK Last Admin: 11/30/20 12:24 Dose: 5,000 units Documented by: Morphine Sulfate (Morphine) 1 mg IVPUSH Q2H PRN PRN Reason: Pain (severe 7-10) Last Admin: 11/26/20 04:14 Dose: 1 mg Documented by: Morphine Sulfate (Duramorph Pf) 0 mg EPIDUR Q12H PRN PRN Reason: Pain Stop: 01/05/21 23:59 Last Admin: 11/28/20 13:06 Dose: 5 mg Documented by: Ondansetron HCl (Zofran) 4 mg IVPUSH Q6H PRN PRN Reason: Nausea Pantoprazole Sodium (Protonix) 40 mg PO DAILY RICK Last Admin: 11/30/20 08:41 Dose: 40 mg Documented by: Phenol/Menthol (Chloraseptic Throat [place]) 0 ml MUCMEM Q2H PRN PRN Reason: Sore Throat Simethicone (Simethicone) 80 mg PO Q4H PRN PRN Reason: Gas Last Admin: 11/29/20 21:04 Dose: 80 mg Documented by: Discontinued Medications Acetaminophen (Tylenol) 975 mg PO Q8H RICK Acetaminophen (Tylenol) 975 mg PO Q8H [facility] Last Admin: 11/25/20 04:53 Dose: 975 mg Documented by: Bisacodyl (Dulcolax) 10 mg RECTAL ONETIME ONE Stop: 11/29/20 16:24 Last Admin: 11/29/20 17:01 Dose: 10 mg Documented by: Dexamethasone (Dexamethasone) Confirm Administered Dose 20 mg .ROUTE .STK-MED ONE Stop: 11/23/20 09:02 Dexamethasone (Dexamethasone) Confirm Administered Dose 20 mg .ROUTE .STK-MED ONE Stop: 11/23/20 15:57 Dexmedetomidine HCl (Precedex) 40 mcg IT Q6H PRN PRN Reason: Pain Stop: 11/27/20 16:01 Last Admin: 11/25/20 16:18 Dose: 40 mcg Documented by: Dexmedetomidine HCl (Precedex) Confirm Administered Dose 200 mcg .ROUTE .STK-MED ONE Stop: 11/25/20 16:10 Last Admin: 11/25/20 17:38 Dose: Not Given Documented by: Dexmedetomidine HCl (Precedex) Confirm Administered Dose 200 mcg .ROUTE .STK-MED ONE Stop: 11/28/20 12:47 Diphenhydramine HCl (Benadryl) 25 mg IVPUSH Q6H PRN PRN Reason: pruritis Stop: 11/23/20 18:00 Diphenhydramine HCl (Benadryl) 25 mg IVPUSH Q6H PRN PRN Reason: pruritis Last Admin: 11/24/20 08:56 Dose: 25 mg Documented by: Docusate Sodium (Colace) 100 mg PO BID [facility] Last Admin: 11/29/20 21:04 Dose: 100 mg Documented by: Fentanyl (Sublimaze) Confirm Administered Dose 250 mcg .ROUTE .STK-MED ONE Stop: 11/23/20 08:56 Glycopyrrolate (Robinul) Confirm Administered Dose 0.4 mg .ROUTE .STK-MED ONE Stop: 11/23/20 16:24 Heparin Sodium (Porcine) (Heparin Sodium) 5,000 units SUBCUT Q8H [facility] Hydromorphone HCl (Dilaudid) 0.5 mg IVPUSH Q2H PRN PRN Reason: Pain Last Admin: 11/29/20 18:52 Dose: 0.5 mg Documented by: Lactated Ringer's (Ringers, Lactated) 1,000 mls @ 125 mls/hr IV ASDIRECTED [facility] Stop: 11/23/20 23:00 Last Admin: 11/23/20 09:25 Dose: 125 mls/hr Documented by: Lidocaine HCl (Xylocaine-Mpf 1%) Confirm Administered Dose 4 mls @ as directed .ROUTE .STK-MED ONE Stop: 11/23/20 08:58 Cefoxitin Sodium 2 gm/ Premix 50 mls @ 100 mls/hr IV ONETIME ONE Stop: 11/23/20 09:59 Last Admin: 11/23/20 09:57 Dose: 100 mls/hr Documented by: Lactated Ringer's (Ringers, Lactated) Confirm Administered Dose 1,000 mls @ as directed .ROUTE .STK-MED ONE Stop: 11/23/20 16:43 Lactated Ringer's (Ringers, Lactated) Confirm Administered Dose 1,000 mls @ as directed .ROUTE .STK-MED ONE Stop: 11/23/20 16:43 Lactated Ringer's (Ringers, Lactated) 1,000 mls @ 150 mls/hr IV ASDIRECTED [facility] Last Infusion: 11/24/20 07:50 Dose: 100 mls/hr Documented by: Lactated Ringer's (Ringers, Lactated) 1,000 mls @ 100 mls/hr IV ASDIRECTED [facility] Last Admin: 11/24/20 22:51 Dose: 100 mls/hr Documented by: Sodium Chloride (Sodium Chloride 0.45%) 1,000 mls @ 50 mls/hr IV ASDIRECTED [facility] Last Admin: 11/25/20 08:06 Dose: 50 mls/hr Documented by: Pantoprazole Sodium 40 mg/ (Sodium Chloride) 100 mls @ 200 mls/hr IV DAILY RICK Potassium Chloride/Dextrose/Sod Cl (D5 1/2 Ns W/ 20 Meq/L Kcl) 1,000 mls @ 30 mls/hr IV ASDIRECTED [facility] Last Infusion: 11/26/20 17:59 Dose: 100 mls/hr Documented by: Lactated Ringer's (Ringers, Lactated) 500 mls @ 999 mls/hr IV .BOLUS ONE Stop: 11/26/20 13:08 Last Admin: 11/26/20 12:44 Dose: 999 mls/hr Documented by: Potassium Chloride/Dextrose/Sod Cl (D5 1/2 Ns W/ 20 Meq/L Kcl) 1,000 mls @ 100 mls/hr IV ASDIRECTED [facility] Last Infusion: 11/27/20 13:33 Dose: 75 mls/hr Documented by: Lactated Ringer's (Ringers, Lactated) 500 mls @ 999 mls/hr IV .BOLUS ONE Stop: 11/26/20 19:45 Last Admin: 11/26/20 19:15 Dose: 999 mls/hr Documented by: Potassium Chloride/Dextrose/Sod Cl (D5 1/2 Ns W/ 20 Meq/L Kcl) 1,000 mls @ 75 mls/hr IV ASDIRECTED [facility] Last Admin: 11/29/20 21:23 Dose: 75 mls/hr Documented by: Influenza Virus Vaccine (Fluzone Quad [id number] Syringe) 60 mcg IM .ONCE ONE Stop: 11/23/20 10:01 Last Admin: 11/25/20 17:59 Dose: Not Given Documented by: Lidocaine/Epinephrine (Xylocaine-Mpf 2%-Epi 1:200,000) Confirm Administered Dose 20 ml .ROUTE .STK-MED ONE Stop: 11/23/20 07:49 Lidocaine/Epinephrine (Xylocaine 1% With Epinephrine 1:100,000) Confirm Administered Dose 40 ml .ROUTE .STK-MED ONE Stop: 11/23/20 10:30 Last Admin: 11/23/20 12:17 Dose: 13 ml Documented by: Lidocaine/Sodium Bicarbonate (Buffered Lidocaine 1% In Ns 8.4%) 0.25 ml IDERM ONETIME PRN PRN Reason: Prior to IV Start Stop: 11/23/20 18:00 Last Admin: 11/23/20 09:35 Dose: 0.25 ml Documented by: Midazolam HCl (Versed 1 Mg/Ml) Confirm Administered Dose 2 mg .ROUTE .STK-MED ONE Stop: 11/23/20 08:56 Midazolam HCl (Versed 1 Mg/Ml) Confirm Administered Dose 2 mg .ROUTE .STK-MED ONE Stop: 11/23/20 10:55 Miscellaneous Information (Remove Patch) 1 ea TRDERM ONETIME ONE Stop: 11/26/20 11:01 Last Admin: 11/26/20 11:21 Dose: 1 ea Documented by: Morphine Sulfate (Duramorph Pf) Confirm Administered Dose 10 mg .ROUTE .STK-MED ONE Stop: 11/23/20 15:17 Morphine Sulfate (Duramorph Pf) Confirm Administered Dose 10 mg .ROUTE .STK-MED ONE Stop: 11/24/20 13:34 Morphine Sulfate (Duramorph Pf) Confirm Administered Dose 10 mg .ROUTE .STK-MED ONE Stop: 11/25/20 08:06 Morphine Sulfate (Duramorph Pf) Confirm Administered Dose 10 mg .ROUTE .STK-MED ONE Stop: 11/26/20 12:27 Morphine Sulfate (Duramorph Pf) Confirm Administered Dose 10 mg .ROUTE .STK-MED ONE Stop: 11/28/20 12:56 Ondansetron HCl (Zofran) Confirm Administered Dose 4 mg .ROUTE .STK-MED ONE Stop: 11/23/20 09:02 Ondansetron HCl (Zofran) 4 mg IVPUSH ONETIME PRN PRN Reason: Nausea/Vomiting Stop: 11/23/20 18:00 Ondansetron HCl (Zofran) 4 mg IVPUSH ONETIME PRN PRN Reason: Nausea/Vomiting Last Admin: 11/25/20 14:16 Dose: 4 mg Documented by: Ondansetron HCl (Zofran) Confirm Administered Dose 4 mg .ROUTE .STK-MED ONE Stop: 11/25/20 13:58 Last Admin: 11/25/20 15:33 Dose: Not Given Documented by: Polyethylene Glycol (Miralax) 17 gm PO BID RICK Last Admin: 11/29/20 21:04 Dose: 17 gm Documented by: Propofol (Diprivan 20 Ml) Confirm Administered Dose 400 mg .ROUTE .STK-MED ONE Stop: 11/23/20 08:55 Propofol (Diprivan 20 Ml) Confirm Administered Dose 200 mg .ROUTE .STK-MED ONE Stop: 11/23/20 08:57 Propofol (Diprivan 20 Ml) Confirm Administered Dose 200 mg .ROUTE .STK-MED ONE Stop: 11/23/20 15:28 Rocuronium Doss (Zemuron) Confirm Administered Dose 50 mg .ROUTE .STK-MED ONE Stop: 11/23/20 09:00 Scopolamine (Transderm-Scop) 1.5 mg TRDERM ONETIME ONE Stop: 11/23/20 11:01 Last Admin: 11/23/20 10:28 Dose: 1.5 mg Documented by: Simethicone (Simethicone) 80 mg PO Q6H PRN PRN Reason: Gas Last Admin: 11/29/20 14:46 Dose: 80 mg Documented by: Sodium Chloride (Saline Flush) 10 ml FLUSH ASDIRECTED PRN PRN Reason: Keep Vein Open Stop: 11/23/20 18:00 Last Admin: 11/23/20 09:35 Dose: 10 ml Documented by:
== END 2020-11-30 17:28 | disposition home or self-care (01) | DRG 231 ==
LOC: JD.ICU 11-23 09:01
PROVIDERS: ADMIT Surgery; ATTEND Surgery
PROC: 0DBN0ZZ Excision of Sigmoid Colon, Open Approach (ICD-10-PCS; principal; 2020-11-23)
PROC: 0DBL0ZZ Excision of Transverse Colon, Open Approach (ICD-10-PCS; 2020-11-23)
PROC: 0DJD8ZZ Inspection of Lower Intestinal Tract, Via Natural or Artificial Opening Endoscopic (ICD-10-PCS; 2020-11-23)
PROC: 0DJD8ZZ Inspection of Lower Intestinal Tract, Via Natural or Artificial Opening Endoscopic (ICD-10-PCS; 2020-11-23)
PROC: 00PUX3Z Removal of Infusion Device from Spinal Canal, External Approach (ICD-10-PCS; 2020-11-28)
DX: D12.5 Benign neoplasm of sigmoid colon (principal); K56.7 Ileus, unspecified; I48.91 Unspecified atrial fibrillation; H54.7 Unspecified visual loss; K59.09 Other constipation; Z79.899 Other long term (current) drug therapy; E55.9 Vitamin D deficiency, unspecified
CPT/HCPCS: 00840; 36415; 62322; 80048; 83735; 84100; 85025; 86140; 86850; 86900; 86901; 93005; A9270-GY; J0694; J1100; J1170; J1200; J1644; J2001; J2250; J2270; J2405; J2704; J3010; J3480; J7030; J7120

== ENCOUNTER 2021-11-02 04:46 | Emergency (ER) | payer BC ==
[2021-11-02] MEDS ORDERED: Sodium Chloride 0.9% 10 ML Syringe FLUSH PRN (05:31)
[2021-11-02] MEDS ORDERED: Sodium Chloride 0.9% 1,000 ML IV SCH (05:45)
--- NOTE | 2021-11-02 06:17 | EDM.PDOC ---
ED HPI GENERAL MEDICAL PROBLEM - General Chief Complaint: Back Pain or Injury Stated Complaint: ABD/BACK PAIN Time Seen by Provider: 11/02/21 05:49 Source of Information: Reports: Patient, Significant Other (Fianc) History Limitations: Reports: No Limitations - History of Present Illness INITIAL COMMENTS - FREE TEXT/NARRATIVE: Mr. Oswald is a very pleasant 61-year-old gentleman who now presents the ED stating that he developed sudden-onset sharp right flank pain that radiated to his right abdomen around 03:30 this morning, while he was doing desk work. He had associated nausea without emesis. He states that his symptoms resolved around 05:30, shortly after he arrived to the ED. The patient states that he had similar symptoms last week, which resolved after about an hour. No other similar episodes. Here in the ED, the patient's initial BP was found to be mildly elevated at 156/91, with bradycardia of 47 bpm. He is afebrile, saturating 100% on room air. At this time, he appears to be comfortable, in no acute distress. Other than the above symptoms, the patient denies having a recent fever, chills, sore throat, ear pain, nasal or sinus congestion, cough, dyspnea, chest pain, palpitations, vomiting, constipation, diarrhea, urinary symptoms, recent weight gain or weight loss, recent bloody bowel movements or black bowel movements, recent joint aches, headaches, or rashes. The patient's PCP is Dr. Luis Haines. He has received 2 COVID vaccinations plus a booster, however, no influenza vaccination this season. Right Middle Back Pain Score (Numeric/FACES): 6 - Related Data Allergies Allergy/AdvReac Type Severity Reaction Status Date / Time No Known Allergies Allergy Verified 11/02/21 05:22 Home Meds: Home Meds . [No Known Home Meds] 11/02/21 [History] Past Medical History HEENT History: Reports: Impaired Vision (wears glasses) - Past Surgical History HEENT Surgical History: Reports: Oral Surgery (dental extractions) GI Surgical History: Reports: Colon (Hemicolectomy), Colonoscopy (Oct 2020) Dermatological Surgical History: Reports: Other (See Below) (Lipoma excised off upper back) Social & Family History - Tobacco Use Tobacco Use Status *Q: Never Tobacco User Second Hand Smoke Exposure: No - Caffeine Use Caffeine Use: Reports: Soda, Tea - Alcohol Use Alcohol Use History: Yes Alcohol Use Frequency: Socially - Recreational Drug Use Recreational Drug Use: No - Living Situation & Occupation Living situation: Reports: , with Significant Other (Fianc) Occupation: Employed (CPA) ED ROS GENERAL - Review of Systems Review Of Systems: Comprehensive ROS is negative, except as noted in HPI. GI/Abdominal: Reports: Constipation (chronic) ED EXAM, RENAL/ - Physical Exam Exam: See Below Exam Limited By: No Limitations General Appearance: Alert, WD/WN, No Apparent Distress Eye Exam: Bilateral Eye: EOMI, Normal Inspection Ears: Normal External Exam, Hearing Grossly Normal Nose: Normal Inspection Throat/Mouth: Normal Inspection, Normal Lips, Normal Voice, No Airway Compromise Head: Atraumatic, Normocephalic Neck: Normal Inspection, Full Range of Motion Respiratory/Chest: No Respiratory Distress, Lungs Clear, Normal Breath Sounds, No Accessory Muscle Use Cardiovascular: Normal Peripheral Pulses, Regular Rate, Rhythm, No Edema, No Gallop, No JVD, No Murmur, No Rub GI/Abdominal: Normal Bowel Sounds, Soft, Non-Tender (including the right abdomen), No Organomegaly, No Distention, No Abnormal Bruit, No Mass Back Exam: Normal Inspection, Full Range of Motion. No: CVA Tenderness (L), CVA Tenderness (R) Extremities: Normal Inspection, Normal Range of Motion, No Pedal Edema, Normal Capillary Refill Neurological: Alert, Oriented, Normal Cognition, No Motor/Sensory Deficits Psychiatric: Normal Affect Skin Exam: Warm, Dry, Intact, Normal Color, No Rash Course - Vital Signs Last Recorded V/S: Last Vital Signs Temp 37.0 C 11/02/21 06:25 Pulse 47 L 11/02/21 05:16 Resp 16 11/02/21 06:25 BP 141/92 H 11/02/21 06:25 Pulse Ox 99 11/02/21 06:25 - Orders/Labs/Meds Orders: Active Orders 24 hr Category Date Time Status Peripheral IV Insertion Adult [OM.PC] Stat Oth 11/02/21 05:32 Ordered Labs: Laboratory Tests 11/02/21 11/02/21 Range/Units 05:10 05:10 WBC 8.10 (4.23-9.07) K/mm3 RBC 5.41 (4.63-6.08) M/mm3 Hgb 15.9 D (13.7-17.5) gm/dl Hct 46.6 (40.1-51.0) % MCV 86.1 D (79.0-92.2) fl MCH 29.4 (25.7-32.2) pg MCHC 34.1 (32.2-35.5) g/dl RDW Std Deviation 41.3 (35.1-43.9) fL Plt Count 332 D (163-337) K/mm3 MPV 9.1 L (9.4-12.3) fl Neut % (Auto) 66.6 (34.0-67.9) % Lymph % (Auto) 24.2 (21.8-53.1) % Rice % (Auto) 5.7 (5.3-12.2) % Eos % (Auto) 2.8 (0.8-7.0) Baso % (Auto) 0.5 (0.1-1.2) % Neut # (Auto) 5.39 H (1.78-5.38) K/mm3 Lymph # (Auto) 1.96 (1.32-3.57) K/mm3 Rice # (Auto) 0.46 (0.30-0.82) K/mm3 Eos # (Auto) 0.23 (0.04-0.54) K/mm3 Baso # (Auto) 0.04 (0.01-0.08) K/mm3 Sodium 144 (136-145) mEq/L Potassium 3.8 (3.5-5.1) mEq/L Chloride 107 (98-107) mEq/L Carbon Dioxide 31 (21-32) mEq/L Anion Gap 9.8 (5-15) BUN 18 (7-18) mg/dL Creatinine 1.1 (0.7-1.3) mg/dL Est Cr Clr Drug Dosing 77.40 mL/min Estimated GFR (MDRD) > 60 (>60) mL/min BUN/Creatinine Ratio 16.4 (14-18) Glucose 130 H (70-99) mg/dL Calcium 8.7 (8.5-10.1) mg/dL Magnesium 2.0 (1.8-2.4) mg/dL Total Bilirubin 0.5 (0.2-1.0) mg/dL AST 13 L (15-37) U/L ALT 30 (16-63) U/L Alkaline Phosphatase 66 (46-116) U/L C-Reactive Protein <0.2 (<1.0) mg/dL Total Protein 7.3 (6.4-8.2) g/dl Albumin 3.6 (3.4-5.0) g/dl Globulin 3.7 gm/dL Albumin/Globulin Ratio 1.0 (1-2) Lipase 101 (73-393) U/L Meds: Medications Discontinued Medications Generic Name Dose Route Start Last Admin Trade Name Freq PRN Reason Stop Dose Admin Sodium Chloride 1,000 mls @ 150 mls/hr 11/02/21 05:45 Normal Saline IV ASDIRECTED RICK Sodium Chloride 10 ml 11/02/21 05:31 11/02/21 05:45 Sodium Chloride 0.9% 10 Ml Syringe FLUSH 10 ml ASDIRECTED PRN Administration Keep Vein Open - Re-Assessments/Exams Free Text/Narrative Re-Assessment/Exam: 11/02/21 06:13 The patient's history is most consistent with a small right-sided ureterolith that he already passed. Because he is asymptomatic, I am not recommending a work-up, however, a CBC, CMP, magnesium level, lipase level, and CRP were all obtained at triage and have resulted. A urinalysis was ordered, but the patient has not been able to provide a urine sample, therefore I canceled the order. The patient's CBC is unremarkable. His CMP is remarkable for mild hyperglycemia of 130, and is otherwise unremarkable. His magnesium level is within normal limits at 2.0. His lipase level is within normal limits at 101. His CRP is undetectably low. The patient will be discharged home with a urine strainer. If he is able to capture the stone, he is to take it to Dr. Haines for analysis. He should stay adequately hydrated. If his symptoms recur, he is to return to the ED for evaluation. Departure - Departure Time of Disposition: 06:15 Disposition: Home, Self-Care 01 Condition: Good Clinical Impression: Right flank pain - Discharge Information *PRESCRIPTION DRUG MONITORING PROGRAM REVIEWED*: Not Applicable *COPY OF PRESCRIPTION DRUG MONITORING REPORT IN PATIENT RODNEY: Not Applicable Referrals: Luis Lewis MD [Primary Care Provider] - Forms: ED Department Discharge Additional Instructions: You were seen in the emergency room after developing sudden onset right flank pain radiating to your right abdomen, with associated nausea. Work-up in the ER included several blood tests, all of which were unremarkable. Your symptoms resolved after about 2 hours, therefore further work-up was not recommended. Based on your history and physical examination, your symptoms were most likely due to a tiny right-sided kidney stone that you have already passed. We recommend that you stay adequately hydrated, and strain all of your urine for the next couple of days. If you capture the stone, take it to Dr. Haines for analysis. If any other problems, including recurrence of your symptoms, please do not hesitate to return to the ER. Sepsis Event Note (ED) - Evaluation Sepsis Screening Result: No Definite Risk - Focused Exam Vital Signs: Vital Signs Temp Pulse Resp BP Pulse Ox 11/02/21 06:25 37.0 C 16 141/92 H 99 11/02/21 05:16 35.7 C L 47 L 16 156/91 H 100 - My Orders Last 24 Hours: My Active Orders 11/02/21 05:32 Peripheral IV Insertion Adult [OM.PC] Stat - Assessment/Plan Last 24 Hours: My Active Orders 11/02/21 05:32 Peripheral IV Insertion Adult [OM.PC] Stat
== END 2021-11-02 06:25 | disposition home or self-care (01) ==
LOC: JD.ED 04:46
DX: R10.9 Unspecified abdominal pain (principal)
CPT/HCPCS: 36415; 80053; 83690; 83735; 85025; 86140; 99284

== ENCOUNTER 2022-04-27 00:25 | Emergency (ER) | payer BC ==
[2022-04-27] MEDS ORDERED: Sodium Chloride 0.9% 10 ML Syringe FLUSH PRN ×2 (00:42→01:02)
[2022-04-27] MEDS ORDERED: Ondansetron 4 MG/2 ML SDV IVPUSH ONE (00:42)
[2022-04-27] MEDS ORDERED: HYDROmorphone 1 MG/ML Syringe IVPUSH ONE (00:44)
[2022-04-27] MEDS ORDERED: Sodium Chloride 0.9% 1,000 ML IV SCH (00:45)
[2022-04-27] MEDS ORDERED: Iopamidol 612 MG/ML 50 ML SDV IVPUSH ONE (01:02)
[2022-04-27] MEDS ORDERED: Iopamidol 612 MG/ML 100 ML Bottle IVPUSH ONE (01:02)
[2022-04-27] MEDS ORDERED: Alum Hydrox/Mag Hydrox/Simeth 30 ML, Lidocaine 2% 15 ML PO ONE ×2 (02:44)
[2022-04-27] MEDS ORDERED: Famotidine 20 MG/2 ML SDV IVPUSH ONE (02:44)
== END 2022-04-27 03:56 | disposition home or self-care (01) ==
LOC: JD.ED 00:25
DX: R10.13 Epigastric pain (principal); R11.2 Nausea with vomiting, unspecified
CPT/HCPCS: 36415; 74177; 80053; 83690; 84484; 85025; 93005; 96374; 96375; 99284; A9270; J1170; J2405; J3490; J7030; Q9967; 93010

== ENCOUNTER 2025-09-14 08:19 | Emergency (ER) | payer BC, MEDICARE ==
[2025-09-14 08:56] LABS: BASOPHILS ABSOLUTE AUTO 0.1 K/mm3 (0.0-0.2); BASOPHILS PERCENT AUTO 0.6 % (0.0-1.0); EOSINOPHILS ABSOLUTE AUTO 0.3 K/mm3 (0.0-0.4); EOSINOPHILS PERCENT AUTO 2.5 % (0.0-6.0); IMMATURE GRAN ABSOLUTE AUTO 0.04 K/mm3 (0.00-0.05); IMMATURE GRAN PERCENT AUTO 0.3 % (0.0-0.4); LYMPHOCYTES ABSOLUTE AUTO 2.0 K/mm3 (1.0-4.8); LYMPHOCYTES PERCENT AUTO 15.7 % (24.0-44.0); MEAN PLATELET VOLUME 8.9 fl (9.4-12.4); MONOCYTES ABSOLUTE AUTO 1.1 K/mm3 (0.0-0.8); MONOCYTES PERCENT AUTO 8.3 % (0.0-8.0); NEUTROPHILS ABSOLUTE AUTO 9.4 K/mm3 (1.8-7.7); NEUTROPHILS PERCENT AUTO 72.6 % (41.0-71.0); NRBC ABSOLUTE 0.00 (0.00-0.02); NRBC PERCENT 0.0 % (0.0-0.2); PLATELET COUNT,PLT 293 K/mm3 (150-400); RED BLOOD CELL COUNT 5.65 M/mm3 (4.52-5.90); WHITE BLOOD CELL COUNT,WBC 12.99 K/mm3 (3.9-11.3)
[2025-09-14 09:23] LABS: A/G RATIO 1.1 (1-2); ALANINE AMINOTRANSFERASE,ALT 41.0 U/L (16-63); ASPARTATE AMNIOTRANSFERASE,AST 23.0 U/L (15-37); BILIRUBIN TOTAL 2.5 mg/dL (0.2-1.0); BLOOD UREA NITROGEN,BUN 16.0 mg/dL (7-18); CARBON DIOXIDE,CO2 28.0 mEq/L (21-32); CHLORIDE,CL 105.0 mEq/L (98-107); CREATINE KINASE,CK 175.0 U/L (39-308); CREATININE 1.2 mg/dL (0.7-1.3); EST CRCL DRUG DOSING (CG) 67.36 mL/min; ESTIMATED GFR 67.0 mL/min (>60); GLUCOSE RANDOM 106.0 mg/dL (70-99); POTASSIUM,K 4.5 mEq/L (3.5-5.1); PROTEIN TOTAL,TP 7.7 g/dl (6.4-8.2); SODIUM,NA 142.0 mEq/L (136-145); TROPONIN I HIGH SENSITIVITY 5.0 pg/mL (<=76)
[2025-09-14] MEDS: Sodium Chloride 0.9% 10 ML Syringe FLUSH ONE (09:47)
[2025-09-14] MEDS: Ondansetron 4 MG/2 ML SDV IV STA (09:48)
[2025-09-14] MEDS: Sodium Chloride 0.9% 10 ML Syringe FLUSH PRN (09:49)
[2025-09-14 09:50] LABS: AMPHETAMINES SCREEN, URINE NEGATIVE (CUTOFF=500); BUPRENORPHINE SCREEN,URINE NEGATIVE (CUTOFF=10); METHADONE SCREEN, URINE NEGATIVE (CUT0FF=200); METHAMPHETAMINES SCREEN, URINE NEGATIVE (CUTOFF=500); OXYCODONE SCREEN,URINE NEGATIVE (CUT0FF=100); THC SCREEN,URINE 20 NG/ML NEGATIVE (CUTOFF=50)
[2025-09-14] MEDS: Iopamidol 612 MG/ML 30 ML SDV IVPUSH ONE (10:27)
[2025-09-14] MEDS: Iopamidol 612 MG/ML 100 ML Bottle IVPUSH ONE (10:27)
== END 2025-09-14 13:13 | disposition home or self-care (01) ==
LOC: JD.ED 08:19
DX: J18.0 Bronchopneumonia, unspecified organism (principal); R10.9 Unspecified abdominal pain; Z79.899 Other long term (current) drug therapy
CPT/HCPCS: 36415; 71260; 74177; 80053; 80306; 82550; 83690; 83735; 84484; 85025; 96374; 99285; A9270; J2405; J7030; J7620; Q0144; Q9967